=== PATIENT | male | born 1960 | race Caucasian/White ===

== ENCOUNTER 2016-10-18 01:36 | Inpatient (IN) ==
[2016-10-18] MEDS ORDERED: Ipratropium/Albuterol Neb 3 ML IH ONE (01:40)
[2016-10-18] MEDS ORDERED: methylPREDNISolone 125 MG/2 ML VIAL IVP ONE (01:40)
--- NOTE | 2016-10-18 01:44 | Emergency Department Note ---
Disposition Clinical Impression: CKD (chronic kidney disease) stage 3, GFR 30-59 ml/min, Flexor tenosynovitis of finger CHF exacerbation Qualifiers: Congestive heart failure type: combined Qualified Code(s): I50.43 - Acute on chronic combined systolic (congestive) and diastolic (congestive) heart failure Disposition: Admitted As Inpatient Condition: Undetermined Referrals: NO,PCP [Non-Partnered Physician] - Forms: ED Satisfaction Letter Time of Disposition: 05:05 SOB HPI - General Chief Complaint: ED Shortness of Breath/Dyspnea Stated Complaint: Jessica/ infected finger Time Seen by Provider: 10/18/16 01:39 Source: patient, family Mode of arrival: ambulatory Limitations: no limitations Nursing Notes Reviewed: Yes Vital Signs Reviewed: Yes - History of Present Illness 56-year-old male with history of diabetes arrives to [facility] emergency department complaining of difficulty breathing that started 3 days ago. The patient states this progressively gotten worse. The patient states his bilateral lower extremity swelling is also worsened. The patient is currently on Lasix for swelling but states that is progressively worsening. The patient denies any chest pain, abdominal pain, nausea nausea, vomiting, cough, change in sputum production. In addition the patient states that he had a splint his finger that started roughly 2 days ago and has progressively worsened to the point today where it is so swollen he cannot move his right third digit on his upper extremity. He denies any fevers or chills. Pt Subjective Complaint: shortness of breath Onset (ago): day(s) (3) Severity: moderate, severe Consistency/Duration: gradually worsening Improves with: nothing Worsens with: exertion Known history of: congestive heart failure, diabetes Associated symptoms: Reports: orthopnea, diaphoresis Treatment prior to arrival: none Cough present: No Sputum production: No - Related Data Home oxygen amount: none Previous Rx's Medication Instructions Recorded Aspirin 81 mg PO DAILY #30 tab.chew 01/10/16 Amlodipine [Norvasc] 5 mg PO DAILY #60 tablet 01/27/16 Ergocalciferol (VITAMIN D2) 50,000 unit PO QWEEK #7 capsule 01/27/16 [Drisdol (50,000 Unit)] Ferrous Sulfate 325 mg PO BIDWM #120 tablet 01/27/16 Insulin LISPRO [HumaLOG] 5 units SQ TIDWM #1 vial 01/27/16 Insulin NPH/REG 70/30 (HUMAN) 28 unit SQ QAM #1 vial 01/27/16 [Humulin 70/30 Vial] Insulin NPH/REG 70/30 (HUMAN) 34 unit SQ HS #1 vial 01/27/16 [Humulin 70/30 Vial] Lactobacillus [Culturelle] 1 each PO BID #120 cap.sprink 01/27/16 Metoprolol [Lopressor] 50 mg PO BID #120 tablet 01/27/16 Furosemide [Lasix] 20 mg PO DAILY #30 tablet 01/30/16 Ciprofloxacin HCl [Cipro] 500 mg PO BID 14 Days 02/11/16 Doxycycline 100 mg PO BID 14 Days 02/11/16 PredniSONE 10 mg PO DAILY #30 tablet 02/11/16 Cephalexin [Keflex] 500 mg PO TID #30 capsule 05/07/16 Doxycycline 100 mg PO BID #20 capsule 05/07/16 Allergies Allergy/AdvReac Type Severity Reaction Status Date / Time clindamycin Allergy Difficulty Verified 02/04/16 15:39 Breathing All systems ED: reviewed and negative except as stated. Constitutional: Denies: fever, chills, weakness, weight change Eyes: Denies: eye pain, eye discharge, vision change ENT ED: Denies: ear pain, throat pain, dental pain, hearing loss, epistaxis, congestion, dysphagia Cardiovascular: Reports: dyspnea on exertion, orthopnea, edema Respiratory: Reports: dyspnea. Denies: cough, wheezes, hemoptysis, stridor, sputum production Gastrointestinal: Denies: abdominal pain, nausea, vomiting, diarrhea, constipation, hematemesis, melena, hematochezia Genitourinary: Denies: urgency, dysuria, frequency, hematuria Musculoskeletal: Reports: joint swelling, arthralgia (Right 3rd digit). Denies : back pain, neck pain Integumentary: Denies: rash, abrasion, lesions Neurological: Reports: as per HPI Past Medical History - Past Medical History Attestation: Yes The following information was validated with the patient. Source: patient Medical history: Reports: arthritis, CHF, diabetes, GERD, hypertension, kidney stones, other Surgical history: Reports: appendectomy, other Psychiatric history: Reports: no psych history - Social History Smoking Status: Current some day smoker Smokeless Tobacco Status: No Alcohol use: Reports: none Drug use: Reports: none Physical Exam Physical Exam: General: Patient alert, in mild to moderate acute respiratory distress, not lethargic, patient is tripoding HEENT: Head normal inspection, atraumatic, PERRLA, oropharynx grossly intact and normal, trachea midline, no JVD Chest: Nontraumatic, nontender, normal chest rise CV: RRR with no murmurs, rubs, gallops Respiratory: Lungs clear to auscultation bilaterally, no rales, rhonchi, wheezes. Abdomen: Normal inspection, Normal bowel sounds 4 quadrants, nontender to palpation : Patient deferred Extremities: Patient has swollen and erythematous right third digit on right upper extremity with chronic skin changes in the distal aspect consistent with skin irritation, fusiform swelling of the right third digit, patient's right third digit is held in partial flexion and he is unable to flex or extend the digit., appropriate pulses, capillary refill under 2 seconds Neurological: Patient alert and oriented 3, cranial nerves II through XII grossly intact, GCS 15 Skin: Warm, intact, no rashes noted - General Limitations: no limitations General appearance: alert, in no apparent distress Course Vital Signs Temperature 97.7 F 10/18/16 01:37 Pulse Rate 85 10/18/16 01:37 Respiratory Rate 18 10/18/16 01:37 Blood Pressure 196/84 10/18/16 01:37 O2 Sat by Pulse Oximetry 94 10/18/16 01:37 Temperature 97.7 F 10/18/16 01:37 Pulse Rate 79 10/18/16 04:30 Respiratory Rate 22 10/18/16 04:30 Blood Pressure 184/86 10/18/16 04:30 O2 Sat by Pulse Oximetry 95 10/18/16 04:30 Oxygen Delivery Oxygen Delivery Bipap Shortness of Breath/Dyspnea - MDM Narrative Medical decision making narrative: Patient's symptoms consistent with exacerbate his CHF. The patient improved on BiPAP as well as nitroglycerin. The patient denies any further complaints at this time after helping the patient breathes with the BiPAP, other than his right third digit. Clinically this appears to be flexor tenosynovitis given the patient's fusiform swelling, the digit being stuck in extension. CT scan of the patient's and is pending at this time. We went ahead and began and the patient on vancomycin and Rocephin which is what is recommended for tenosynovitis. He received a 20 mg/kg dose of vancomycin and 1 g of Rocephin. The patient remains afebrile. The patient will be admitted to the hospitalist accepted by Dr. Vasquez. - Lab Data Lab results reviewed: Yes I reviewed the patient's lab results. Result diagrams: 10/18/16 01:58 10/18/16 01:58 Lab Results 10/18/16 10/18/16 10/18/16 Range/Units 01:58 01:58 01:58 WBC 10.8 (4.3-11.1) K/mcL RBC 3.74 L (4.19-5.50) M/mcL Hgb 10.1 L (12.9-16.9) g/dL Hct 31.6 L (37.5-50.1) % MCV 84.5 (83.0-100.0) fL MCH 27.0 L (28.0-33.3) pg MCHC 32.0 (31.6-35.5) g/dL RDW 13.2 (11.5-14.5) % Plt Count 235 (140-400) K/mcL MPV 9.8 (9.4-12.4) fL Immature Gran % 0.5 (0-4) % Seg Neutrophils % 77.0 % Lymphocytes % 8.0 % Monocytes % 8.4 % Eosinophils % 5.1 % Basophils % 1.0 % Neutrophils # 8.3 (1.6-8.9) K/mcL Lymphocytes # 0.9 (0.6-4.6) K/mcL Monocytes # 0.9 (0.0-1.3) K/mcL Eosinophils # 0.6 (0.0-0.6) K/mcL Basophils # 0.1 (0.0-0.2) K/mcL VBG pH (7.32-7.42) pH Units VBG pCO2 (41-51) mmHg VBG pO2 (25-40) mmHg VBG HCO3 (21-27) mEq/L Sodium 138 (136-145) mEq/L Potassium 4.7 H (3.5-4.5) mEq/L Chloride 108 (98-109) mEq/L Carbon Dioxide 22 (19-29) mEq/L BUN 57 H (8-26) mg/dL Creatinine 2.14 H (0.72-1.25) mg/dL Est GFR ( Amer) 39 L (> 60) Est GFR (Non-Af Amer) 32 L (> 60) BUN/Creatinine Ratio 27 H (6-26) Glucose 202 H (70-99) mg/dL Calculated Osmolality 308 H (280-300) Lactic Acid (0.5-2.2) mmol/L Calcium 8.3 L (8.6-10.8) mg/dL Troponin I 0.03 (0-0.03) ng/mL B-Natriuretic Peptide (0-100) pg/mL 10/18/16 10/18/16 10/18/16 Range/Units 01:58 01:58 01:58 WBC (4.3-11.1) K/mcL RBC (4.19-5.50) M/mcL Hgb (12.9-16.9) g/dL Hct (37.5-50.1) % MCV (83.0-100.0) fL MCH (28.0-33.3) pg MCHC (31.6-35.5) g/dL RDW (11.5-14.5) % Plt Count (140-400) K/mcL MPV (9.4-12.4) fL Immature Gran % (0-4) % Seg Neutrophils % % Lymphocytes % % Monocytes % % Eosinophils % % Basophils % % Neutrophils # (1.6-8.9) K/mcL Lymphocytes # (0.6-4.6) K/mcL Monocytes # (0.0-1.3) K/mcL Eosinophils # (0.0-0.6) K/mcL Basophils # (0.0-0.2) K/mcL VBG pH 7.41 (7.32-7.42) pH Units VBG pCO2 36 L (41-51) mmHg VBG pO2 179 H (25-40) mmHg VBG HCO3 22.8 (21-27) mEq/L Sodium (136-145) mEq/L Potassium (3.5-4.5) mEq/L Chloride (98-109) mEq/L Carbon Dioxide (19-29) mEq/L BUN (8-26) mg/dL Creatinine (0.72-1.25) mg/dL Est GFR ( Amer) (> 60) Est GFR (Non-Af Amer) (> 60) BUN/Creatinine Ratio (6-26) Glucose (70-99) mg/dL Calculated Osmolality (280-300) Lactic Acid 1.4 (0.5-2.2) mmol/L Calcium (8.6-10.8) mg/dL Troponin I (0-0.03) ng/mL B-Natriuretic Peptide 240 H (0-100) pg/mL - Radiology Data Radiology results reviewed: Yes I reviewed the patient's radiology results. - EKG Data EKG attestation: Yes I reviewed and interpreted this EKG. EKG results narrative: Heart rate 86 bpm. NE interval 123 ms. QTC 48 ms. Normal axis. Normal sinus rhythm. Right bundle branch block. No ST elevation or ST depression noted. No acute changes on EKG from 01/09/2016.
--- NOTE | 2016-10-18 01:49 | Emergency Department Note ---
START Narrative - START START: I examined this patient and my medical decision-making was reviewed with the MEDICAL LABORATORY SPECIALIST/PA/Advanced Practice Nurse/Resident Physician. I agree with the documented findings, disposition and treatment plan as described except to the extent set forth below. ED attending note: Patient seen with emergency medicine resident Dr. Austin. Please see a copy of his note for details of the H&P, evaluation, management and disposition of this patient. We independently had [id number] contact with the patient Briefly: A 56-year-old large-bore comes in with 2 chief complaints 1 increasing shortness of breath unable to lie down and swelling of his body for the past 3 days. Injury to the right middle finger with redness and swelling and pain. Physical examination shows a lateral malleolus [address] Patient is getting DuoNeb treatment and BiPAP. We will also get a CT that scan of the hand and finger to exclude the possibility of presumed flexor tenosynovitis. Admission anticipated. Provided 30 minutes critical care service for this patient. Disposition pending.
[2016-10-18] MEDS: Nitroglycerin 0.4 MG TAB.SUBL SL PRN ×3 (02:00→02:15)
[2016-10-18 02:12] LABS: Basophils # 0.1 K/mcL (0.0-0.2); Eosinophils # 0.6 K/mcL (0.0-0.6); Eosinophils % 5.1 %; Hematocrit 31.6 % (37.5-50.1); Hemoglobin 10.1 g/dL (12.9-16.9); Immature Granulocytes % 0.5 % (0-4); Lymphocytes # 0.9 K/mcL (0.6-4.6); Mean Corpuscular Volume 84.5 fL (83.0-100.0); Mean Platelet Volume 9.8 fL (9.4-12.4); Monocytes # 0.9 K/mcL (0.0-1.3); Monocytes % 8.4 %; Neutrophils # 8.3 K/mcL (1.6-8.9); Platelet Count 235 K/mcL (140-400); Red Blood Count 3.74 M/mcL (4.19-5.50); Red Cell Distribution Width 13.2 % (11.5-14.5)
[2016-10-18 02:16] LABS: VBG HCO3 22.8 mEq/L (21-27); VBG PH 7.41 pH Units (7.32-7.42)
[2016-10-18 02:25] LABS: Calcium 8.3 mg/dL (8.6-10.8); Potassium 4.7 mEq/L (3.5-4.5)
[2016-10-18] MEDS ORDERED: Vancomycin 2,000 MG in D5% in Water 250 ML IVPB ONE (03:48)
[2016-10-18] MEDS ORDERED: *HR* HYDROcodone/Acet 5/325 mg TABLET PO PRN (08:07)
[2016-10-18] MEDS ORDERED: Ondansetron 4 MG/2 ML VIAL IVP PRN (08:07)
[2016-10-18] MEDS ORDERED: Naloxone 0.4 MG/ML INJ IVP PRN (08:07)
[2016-10-18] MEDS ORDERED: *HR* Morphine 2 MG/ML SYRINGE IVP PRN (08:07)
[2016-10-18] MEDS ORDERED: Acetaminophen 325 MG TABLET PO PRN (08:07)
[2016-10-18] MEDS ORDERED: Dextrose Gel 15 GM PO PRN ×2 (08:11)
[2016-10-18] MEDS ORDERED: D5% in Water 1,000 ML IVC PRN (08:11)
[2016-10-18] MEDS ORDERED: *HR* Dextrose 50 % in Water (Syg) 50 ML SYRINGE IVP PRN (08:11)
[2016-10-18] MEDS ORDERED: Furosemide 40 MG/4 ML VIAL IVP ONE (08:12)
--- NOTE | 2016-10-18 09:32 | Internal Med History&Physical ---
Date of Encounter: 10/18/16 Time of Encounter: 09:31 Assessment and Plan (1) Acute respiratory failure with hypoxia Current visit: Yes Status: Acute Secondary to pulmonary edema from uncontrolled HTN and CHF exacerbation Patient is currently on BiPAP Place bedside pulse oximetry Continue BiPAP for now NPO for now May transition to O2 by nasal cannula after re-evaluation if patient improves Patient is at risk for worsening failure and mechanical intubation (2) CHF exacerbation Current visit: Yes Status: Acute Patient with Moderate diastolic dysfunction per ECHO in 2016 Not compliant with dietary and fluid restriction I suspect he is also not complaint with meds, due to uncontrolled HTN and DM Patient is given IV lasix 40 STAT, continue IV 40mg bid, and will give extra doses as tolerated by BP and kidney function Monitor Chem Strict I/O Bed rest Daily weights Obtain new ECHO EKG is non-ischemic, patient has no chest pain and troponin is negative Fluid restriction diet Qualifiers: Congestive heart failure type: diastolic Qualified Code(s): I50.33 - Acute on chronic diastolic (congestive) heart failure (3) Cellulitis of right middle finger Current visit: Yes Status: Acute Hand CT has been ordered Continue vancomycin and ceftriaxone Will consult hand surgery (4) COPD (chronic obstructive pulmonary disease) Current visit: Yes Status: Chronic Not in exacerbation Duonebs prn Qualifiers: COPD type: chronic bronchitis Chronic bronchitis type: simple Qualified Code(s): J41.0 - Simple chronic bronchitis (5) CKD (chronic kidney disease), stage III Current visit: Yes Status: Chronic Chronic, stable Continue to monitor Chem (6) Diabetes mellitus Current visit: Yes Status: Chronic Uncontrolled, complicated Obtain A1C ADA diet FS ACHS Basal, prandial and correctional dose insulin Qualifiers: Diabetes mellitus type: type 2 Diabetes mellitus complication status: with kidney complications Diabetes mellitus complication detail: with chronic kidney disease Diabetes mellitus group home insulin use: with group home use Chronic kidney disease stage: stage 3 (moderate) Qualified Code(s): E11.22 - Type 2 diabetes mellitus with diabetic chronic kidney disease; N18.3 - Chronic kidney disease, stage 3 (moderate); Z79.4 - nursing home (current) use of insulin (7) Tobacco abuse Current visit: Yes Status: Chronic Encouraged to quit NRT prn (8) Accelerated hypertension Current visit: Yes Status: Acute Resume home meds Continue IV lasix Titrate prn (9) Diarrhea Current visit: Yes Status: Acute Check C.diff Electrolytes are acceptable Qualifiers: Diarrhea type: unspecified type Qualified Code(s): R19.7 - Diarrhea, unspecified Internal Medicine - H&P: HPI Chief complaint: shortness of breath Admitted From: Home Plans for Post Hospital Care: Home History of present illness: Mr. Robles is a 56 year old male with PMH of Morbid Obesity, HTN, CKD III, DM, CHFpEF with moderate diastolic dysfunction and moderate Pulm HTN (ECHO 01/2016), Daily smoker Evaluated at bedside with RN and his spouse He presented to the ER with complains of worsening of his leg swelling and progressive shortness of breath for the past 3- 5 days. He reports he is compliant with his home medications but does take a lot of salt and lots of fluids. He denied chest pain, palpitations, but endorsed orthopnea, he denies nausea, vomiting or diaphoresis He also reports he has been having diarrhea for 3 weeks (his seemed surprised at this information), he denies abdominal pain, stool is non-bloody and non-mucoid he also reports he has had a swelling of his right middle finger for the past week, now recently associated redness , and pain involving his entire right hand. he is a poorly controlled diabetic with multiple foot infections. He denies fever or chills. In the ED he was tachypneic, hypoxic and hypertensive, SBP >190, DBP >100, he was worked up and given antibiotics for his finger infection and solumedrol for his shortness of breath At bedside, patient is tachypneic on BIPAP, with RR 20-24, speaks full sentences rapidly , and in mild respiratory distress, he is afebrile. Neurologic exam revealed no focal deficits HEENT: Moist oral mucosa, no JVD Chest: Severely diminished breath sounds bilaterally , possibly due to body habitus and fine crackles are present at the lung bases. Patient is not wheezing. heart: S1, S2, tachycardia, no m/g/r Abdomen: Abdominal wall edema, obese abdomen with no palpably enlarged organs , no masses palpable, BS are present Extremities: Bilateral 3+ pitting pedal edema up to the knees, patient also has sacral edema. Hid right middle finger is swollen, red and tender, with possibly fluctuancy on the finger bed, his right hand is also swollen up to mid forearm. Radial pulses are present. Labs and Imaging reviewed BNP 240 CBC WNL for baseline Chem at baseline VBG no hypoxia CXR: Pulmonary edema EKG RBBB, NOn-ischemic ECHO 01/2016-LVEF 60%, moderate DD, Moderate Pulm HTN Past Med Surg Social Fam HX - Past Medical History Medical history: arthritis, CHF, diabetes, GERD, hypertension, kidney stones, other Psychiatric history: no psych history - Past Surgical History Surgical History: appendectomy, other - Social History Smoking Status: Current some day smoker Smokeless Tobacco Status: No Alcohol use: none Drug use: none - Family History Mother Hx Family Endocrine Disorder: Yes (DIABETIC) Father Hx Family Cancer: Yes (PROSTATE CANCER) Sister Hx Family Cardiac Disorders: Yes (hypertension, hyperlipidemia) Hx Family Endocrine Disorder: Yes (DMII) Internal Medicine - H&P: Meds Insulin NPH/REG 70/30 (HUMAN) [Humulin 70/30 Vial] 28 unit SQ QAM #1 vial [Rx] Insulin NPH/REG 70/30 (HUMAN) [Humulin 70/30 Vial] 34 unit SQ HS #1 vial [Rx] Furosemide [Lasix] 40 mg PO BID 10/18/16 [History] Lisinopril-HCTZ 10-12.5 [Prinzide 10-12.5] 1 tab PO DAILY 10/18/16 [History] Potassium Chloride [K-Tab ER] 20 meq PO DAILY 10/18/16 [History] Allergies clindamycin Allergy (Verified 10/18/16 06:00) Difficulty Breathing All Systems PM: A 10-system review of systems was performed and is negative for pertinent findings except as documented above in the HPI. - Constitutional Constitutional: as per HPI - EENT Eyes: as per HPI Ears: as per HPI Nose, mouth and throat: as per HPI - Cardiovascular Cardiovascular ROS IM: as per HPI - Respiratory Respiratory: as per HPI - Gastrointestinal Gastrointestinal: as per HPI - Musculoskeletal Musculoskeletal ROS IM: as per HPI - Integumentary Integumentary IM: as per HPI - Neurological Neurological ROS: as per HPI - Hematologic/Lymphatic Hematologic/Lymphatic: as per HPI - Constitutional Vitals: Temp Pulse Resp BP Pulse Ox 98.1 F 83 16 196/79 96 10/18/16 06:51 10/18/16 06:51 10/18/16 06:51 10/18/16 06:51 10/18/16 06:51 At bedside, patient is tachypneic on BIPAP, with RR 20-24, speaks full sentences rapidly , and in mild respiratory distress, he is afebrile. Neurologic exam revealed no focal deficits HEENT: Moist oral mucosa, no JVD Chest: Severely diminished breath sounds bilaterally , possibly due to body habitus and fine crackles are present at the lung bases. Patient is not wheezing. heart: S1, S2, tachycardia, no m/g/r Abdomen: Abdominal wall edema, obese abdomen with no palpably enlarged organs , no masses palpable, BS are present Extremities: Bilateral 3+ pitting pedal edema up to the knees, patient also has sacral edema. Hid right middle finger is swollen, red and tender, with possibly fluctuancy on the finger bed, his right hand is also swollen up to mid forearm. Radial pulses are present. Internal Med - H&P Results - Labs CBC & Chem 7: 10/18/16 01:58 10/18/16 01:58 Labs: Labs and Imaging reviewed BNP 240 CBC WNL for baseline Chem at baseline VBG no hypoxia CXR: Pulmonary edema EKG RBBB, NOn-ischemic ECHO 01/2016-LVEF 60%, moderate DD, Moderate Pulm HTN
[2016-10-18 10:32] LABS: Hemoglobin A1C 7.6 %
[2016-10-18] MEDS: Insulin LISPRO 300 UNITS/3 ML VIAL SQ SCH ×5 (12:37→20:32)
[2016-10-18] MEDS ORDERED: Vancomycin 2,000 MG in D5% in Water 250 ML IVPB SCH (15:00)
[2016-10-18] MEDS: Furosemide 40 MG/4 ML VIAL IVP SCH (17:33)
[2016-10-18] MEDS: Insulin DETEMIR 100 UNIT/ML X5UNITS SQ SCH (20:32)
[2016-10-18] MEDS: Nitroglycerin 1 INCH/GM PACKET TP SCH (23:03)
[2016-10-19 03:28] LABS: Basophils # 0.1 K/mcL (0.0-0.2); Basophils % 0.5 %; Eosinophils # 0.1 K/mcL (0.0-0.6); Eosinophils % 0.5 %; Hematocrit 29.5 % (37.5-50.1); Hemoglobin 9.4 g/dL (12.9-16.9); Immature Granulocytes % 0.7 % (0-4); Lymphocytes # 1.2 K/mcL (0.6-4.6); Lymphocytes % 9.4 %; Mean Corpuscular HGB Conc 31.9 g/dL (31.6-35.5); Mean Corpuscular Hemoglobin 26.9 pg (28.0-33.3); Mean Corpuscular Volume 84.3 fL (83.0-100.0); Mean Platelet Volume 10.4 fL (9.4-12.4); Monocytes # 1.1 K/mcL (0.0-1.3); Monocytes % 8.8 %; Neutrophils # 10.3 K/mcL (1.6-8.9); Platelet Count 248 K/mcL (140-400); Red Cell Distribution Width 13.1 % (11.5-14.5); Segmented Neutrophils % 80.1 %
[2016-10-19 03:41] LABS: Calcium 8.8 mg/dL (8.6-10.8); Potassium 4.4 mEq/L (3.5-4.5)
[2016-10-19] MEDS: Nitroglycerin 1 INCH/GM PACKET TP SCH ×2 (04:48→12:57)
[2016-10-19] MEDS: Vancomycin 1,500 MG in D5% in Water 250 ML IVPB SCH (05:42)
[2016-10-19] MEDS: *HR* Enoxaparin 40 MG/0.4 ML SYRINGE SQ SCH (05:43)
[2016-10-19] MEDS: Insulin LISPRO 300 UNITS/3 ML VIAL SQ SCH ×7 (08:35→21:33)
[2016-10-19] MEDS: Furosemide 40 MG/4 ML VIAL IVP SCH ×2 (08:43→16:57)
[2016-10-19] MEDS ORDERED: Lisinopril 20 MG TABLET PO SCH (09:00)
--- NOTE | 2016-10-19 09:30 | Electrocardiograph Report ---
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
--- NOTE | 2016-10-19 10:37 | ECHO - Doppler Report ---
Echocardiogram Name: Román Robles Date of Study: 10/19/2016 Date: 1960 Ht: 69.0 in Medical Record#: [id number] Age: 56 Wt: 293.0 lb Gender: Male BSA: 2.43 Order #: [id number] Location: [facility] Room #: 3B Reading Physician: Nitin Atkins DO, FACC, HARDY Commissary Manager: RENO RiosT, RD Ordering Physician: Rachael Kerns CNP Primary Physician: Dyllan Richards MD Indications: Congestive heart failure Impressions: LVEF 60-65%. Normal LV chamber size and function. Mild concentric left ventricular hypertrophy. Moderate left ventricular diastolic dysfunction. Normal right ventricular structure and function. Moderately dilated left atrium. Mild pulmonary hypertension. Estimated RVSP is 43 mmHg. No significant valvular dysfunction. Left Ventricular Wall Motion: Rest Echo Findings All wall segments showed normal motion. Findings: Study Quality * Technically adequate exam. ECG Findings * Normal sinus rhythm. Left Ventricle * LVEF 60-65%. * Normal LV chamber size and function. * Mild concentric left ventricular hypertrophy. * Moderate left ventricular diastolic dysfunction. Right Ventricle * Normal right ventricular structure and function. Left Atrium * Moderately dilated left atrium. Right Atrium * Mild to moderately dilated right atrium. Interatrial Septum * No evidence of PFO by color Doppler. Aortic Valve * Trileaflet aortic valve. * Mildly sclerotic aortic valve leaflets. * No aortic stenosis. * Trace aortic regurgitation. Mitral Valve * Mildly thickened mitral valve leaflets. * Trace mitral regurgitation. * No mitral stenosis. Tricuspid Valve * Normal tricuspid valve structure and function. * Trace tricuspid regurgitation. * Mild pulmonary hypertension. * Estimated RVSP is 43 mmHg. * Estimated RA pressure is 5 mmHg. Pulmonic Valve * Normal pulmonic valve structure and function. * Trace pulmonic regurgitation. Aorta * Normally sized aortic root. Pericardium * There is a trivial pericardial effusion present. IVC * Normal IVC dimensions and inspiratory collapse. Pulmonary Artery * Normal visualized portions of the main pulmonary artery. History Hypertension Diabetes Congestive Heart Failure 02-06-2016 a Previous Echo was performed. Measurements: BP: 129/ 68 2D Normal Values RVIDd: 3.80 cm <2.7 cm IVSd: 1.30 cm 0.6 - 1.0 cm LVIDd: 5.50 cm 3.7 - 5.6 cm LVPWd: 1.30 cm 0.6 - 1.1 cm LVIDs: 4.00 cm 1.5 - 3.6 cm AO: 2.90 cm < 4.0 cm LA: 4.50 cm 2.0 - 4.0cm %FS: 27.30 cm >25 % LA volume: 72 Mitral Valve Dec Time:236.00 msec Peak E:1.31 m/sec Peak A:.70 m/sec E/A Ratio:1.9 Peak E' Lat Sukhdev:10.2 cm/s Peak E' Med Sukhdev:13.1 cm/s E/E' Lat Ratio:12.8 E/E' Med Ratio:10 Aortic Valve AI pressure Half-time: 432.00 msec Tricuspid Valve TV Regurg Peak Grad: 38.00mmHg TV Regurg Peak Sukhdev: 3.08m/sec Updated by Nitin Atkins DO, PRECIOUS, ESTHER DASH on 10/19/2016 10:33:36 AM electronically signed on 10/19/2016 10:33:59 AM with status of Final Wall Motion [place]: 1=Normal, 2=Hypokinesis, 3=Akinesis, 4=Dyskinesis, 5=Aneurysmal, 6=Hyperkinetic, X=Not Visualized (Blank)=Missing
--- NOTE | 2016-10-19 12:06 | Internal Med Progress Note ---
Date of Encounter: 10/19/16 Time of Encounter: 12:04 - Assessment and plan (1) Acute respiratory failure with hypoxia Current Visit: Yes Status: Acute Assessment and plan: Improved Supplemental O2 prn (2) CHF exacerbation Current Visit: Yes Status: Acute Assessment and plan: I/O -3L Weight loss reported ECHO noted Continue current management Qualifiers: Congestive heart failure type: diastolic Qualified Code(s): I50.33 - Acute on chronic diastolic (congestive) heart failure (3) Cellulitis of right middle finger Current Visit: Yes Status: Acute Assessment and plan: Wioth abscess And MRSA possibly from the infected right middle finger s/p I and D and biopsy Hand MRI shows osteomyelitis with abscess and tenosynovitis Continue Vancomycin and Ceftriaoxone Pharmacy to dose Monitor vanco trough and renal function Repeat blood cultures a.m to assess clearance of bacteremia prior to placing PICC line ECHO reports no vegetations Patient is afebrile (4) COPD (chronic obstructive pulmonary disease) Current Visit: Yes Status: Chronic Assessment and plan: Continue duonebs prn Qualifiers: COPD type: chronic bronchitis Chronic bronchitis type: simple Qualified Code(s): J41.0 - Simple chronic bronchitis (5) CKD (chronic kidney disease), stage III Current Visit: Yes Status: Chronic Assessment and plan: Slighlty elevatd BUN Cr stable Continue diuresis and continue to monitor (6) Diabetes mellitus Current Visit: Yes Status: Chronic Qualifiers: Diabetes mellitus type: type 2 Diabetes mellitus complication status: with kidney complications Diabetes mellitus complication detail: with chronic kidney disease Diabetes mellitus intermediate insulin use: with intermediate use Chronic kidney disease stage: stage 3 (moderate) Qualified Code(s): E11.22 - Type 2 diabetes mellitus with diabetic chronic kidney disease; N18.3 - Chronic kidney disease, stage 3 (moderate); Z79.4 - jail (current) use of insulin (7) Tobacco abuse Current Visit: Yes Status: Chronic Assessment and plan: Cessation counselling done (8) Accelerated hypertension Current Visit: Yes Status: Acute (9) Diarrhea Current Visit: Yes Status: Acute Assessment and plan: Cdiff negative Patient denies symptoms Qualifiers: Diarrhea type: unspecified type Qualified Code(s): R19.7 - Diarrhea, unspecified (10) MRSA bacteremia Current Visit: Yes Status: Acute Assessment and plan: Mgt as in cellulitis (11) Osteomyelitis Current Visit: Yes Status: Acute Assessment and plan: R middle finger management as in cellulitis Qualifiers: Osteomyelitis type: unspecified type Osteomyelitis location: other site Qualified Code(s): M86.9 - Osteomyelitis, unspecified - Subjective Interval history: Seen at bedside Denies new complains He looks markedly improved compared to clinical status on arrival Adequately diuresed, I/O -3L, weight loss noted Blood culture now with MRSA Hand CT noted for cellulitis and possible osteomyelitis ECHO reviewed -moderate LVDD, Pulm HTN, dilated LA. EF 60-65% No vegetations orthopedics has been consulted , saw Dr. Champion at bedside, patient has had I and D of the right third finger and bone biopsy has been obtained - Constitutional Vitals: Temp Pulse Resp BP Pulse Ox 97.1 F L 69 17 173/84 97 10/19/16 11:57 10/19/16 11:57 10/19/16 11:57 10/19/16 11:57 10/19/16 11:57 General appearance: Present: A&O X 3, morbidly obese, pleasant, no acute distress - Head Head exam: Present: atraumatic, normocephalic - Eye Eye exam: Present: PERRL, conjuntiva pink, sclera anicteric Pupils: Present: PERRL - Neck Neck exam general surgery: Present: supple, trachea midline. Absent: lymphadenopathy - Respiratory Respiratory exam: Present: CTAB. Absent: accessory muscle use, rales, rhonchi, wheezes - Cardiovascular Cardiovascular exam: Present: JVD, RRR, +S1, +S2. Absent: diastolic murmur, gallop, rubs, systolic murmur - GI/Abdominal GI/Abdominal exam: Present: normal bowel sounds, soft, no peritoneal signs. Absent: distended, tenderness - Extremities Exam Extremities exam: Present: pedal edema Additional comments: Right middle finger being biopsied and abscess drained by orthopedic surgeon, minimal bleeding - Neurological Exam Neurological exam: Present: alert, CN II-XII intact, oriented X3, no focal deficits. Absent: pronater drift, facial droop, speech deficit - Skin Skin exam: Present: dry Internal Medicine: Result - Labs CBC & Chem 7: 10/19/16 02:48 10/19/16 02:48 Labs: Short CBC 04/10/17 Range/Units 02:48 WBC 12.8 H (4.3-11.1) K/mcL Hgb 9.4 L (12.9-16.9) g/dL Hct 29.5 L (37.5-50.1) % Plt Count 248 (140-400) K/mcL Neutrophils # 10.3 H (1.6-8.9) K/mcL BMP 10/19/16 02:48 Sodium 140 Potassium 4.4 Chloride 109 Carbon Dioxide 18 L BUN 74 H D Creatinine 2.19 H Glucose 77 Calcium 8.8 Consult Discharge Plan - Plan Referrals: Dyllan Richards MD [Primary Care Provider] - 10/26/16 1:15 pm
[2016-10-19] MEDS ORDERED: amLODIPine 5 MG TABLET PO ONE (12:07)
--- NOTE | 2016-10-19 12:57 | Orthopedic Consult Note ---
Date of Encounter: 10/19/16 Time of Encounter: 12:53 Assessment and Plan (1) Finger infection Current Visit: Yes Status: Acute I did discuss the diagnosis in great detail with the patient. He has a right long finger infection, with abscess underneath the nailbed and presumably osteomyelitis of the distal phalanx. Treatment options were discussed and my recommendation was for nail plate removal and decompression of the abscess with debridement of bone. The goal of the procedure is to treat the infection. The risks discussed included but were not limited to bleeding, infection, anesthesia risks, damage to neurovascular structures, tendons, ligaments, and bone. Also discussed was the risk of continued symptoms and possible need for further procedures. I discussed the reasonable foreseeable course afterwards which is likely 6 weeks of antibiotics and daily dressing changes. I explained to the patient in simple terms and he wished to proceed and consent was obtained. Anesthesia was not needed since he is numb at baseline at the fingertip. A sterile field was set up around the right long finger and a digital tourniquet was used. The nail plate was uneventfully removed and this immediately decompressed the abscess through a hole in the dorsal nailbed. This was cultured with swabs. The hole measured about 2 mm in diameter. This did track down to the distal phalanx. The wound was copiously irrigated. The distal phalanx was debrided and bone was sent for culture. After final copious irrigation the wound was packed with quarter inch packing. The digital tourniquet was taken off. A sterile dressing was placed. The patient tolerated this well. IV antibiotics per the primary team. My recommendation is for daily dressing changes with peroxide soaks. I will follow the patient clinically. History of Present Illness HPI: Mr. Robles is a 56 year old poorly controlled diabetic male who who is admitted to the hospitalist for a CHF exacerbation and acute respiratory failure. He has recovered reasonably well from this, and was noted to have cellulitis about the right long finger. Hand surgery was counseled to assist in the the management of this. The patient indicates to me that he gets chronic fissuring of the tips of the digits and has had diabetic neuropathy and no sensation in the digits for years. Occasionally he will get an infection in the digit which he says resolves itself. The patient indicates that he noticed a fissure at the tip of the right long finger about 2 weeks ago. He says about a week ago began to become swollen and infected and actually auto-decompressed, draining some purulent material. Because of the neuropathy he has no pain. The fingertip is completely numb. No other associated signs or symptoms. The patient has not yet had any treatment for the right long finger specifically. Past Med Surg Social Fam HX - Past Medical History Medical history: arthritis, CHF, diabetes, GERD, hypertension, kidney stones, other Psychiatric history: no psych history - Past Surgical History Surgical History: appendectomy, other - Social History Smoking Status: Current some day smoker Smokeless Tobacco Status: No Alcohol use: none Drug use: none - Family History Mother Hx Family Endocrine Disorder: Yes (DIABETIC) Father Hx Family Cancer: Yes (PROSTATE CANCER) Sister Hx Family Cardiac Disorders: Yes (hypertension, hyperlipidemia) Hx Family Endocrine Disorder: Yes (DMII) Medications and Allergies Furosemide [Lasix] 40 mg PO BID 10/18/16 [History] Insulin NPH Hum/Reg Insulin Hm [Humulin 70-30 Vial] 22 unit SQ BID 10/18/16 [ History] Lisinopril/Hydrochlorothiazide [Zestoretic 20-25 mg Tablet] 1 each PO DAILY 03/28 [History] Metolazone [Zaroxolyn] 2.5 mg PO Q48H 10/18/16 [History] Potassium Chloride [Klor-Con Sprinkle] 10 meq PO BID 10/18/16 [History] Allergies clindamycin Allergy (Verified 10/18/16 06:00) Difficulty Breathing All Systems Reviewed: Constitutional and musculoskeletal systems were reviewed and are negative unless otherwise stated in history of present illness. Physical Exam - Constitutional Vitals: Temp Pulse Resp BP Pulse Ox 97.1 F L 69 17 173/84 97 10/19/16 11:57 10/19/16 11:57 10/19/16 11:57 10/19/16 11:57 10/19/16 11:57 CONSTITUTIONAL -Vitals reviewed -The patient is well developed, well nourished, well groomed PSYCHIATRIC -Fully alert and oriented x 3 -Pleasant mood RIGHT UPPER EXTREMITY -The tip of the long finger has a periodic fluid collection underneath the nail plate, which is partially avulsed from underneath the proximal nail fold. -Moderate generalized swelling to the long fingertip. -Mild, diffuse erythema to the tip of the digit. -Know tenderness and no sensation throughout any of the digits of the hand. -He does demonstrate the ability to grossly flex and extend the digits with some limitation due to the swelling of the long finger. -The fingertips have good capillary refill. Diagnostic Imaging: I did personally review and interpret a CT scan and MRI of the right long finger which does show an abscess underneath the nailbed of the right long finger. There does appear to be a fracture of the distal phalanx versus osteomyelitis. Results - Labs Result Diagrams: 10/19/16 02:48 10/19/16 02:48 Labs: Abnormal lab results WBC 12.8 K/mcL (4.3-11.1) H 10/19/16 02:48 RBC 3.50 M/mcL (4.19-5.50) L 10/19/16 02:48 Hgb 9.4 g/dL (12.9-16.9) L 10/19/16 02:48 Hct 29.5 % (37.5-50.1) L 10/19/16 02:48 MCH 26.9 pg (28.0-33.3) L 10/19/16 02:48 Neutrophils # 10.3 K/mcL (1.6-8.9) H 10/19/16 02:48 VBG pCO2 36 mmHg (41-51) L 10/18/16 01:58 VBG pO2 179 mmHg (25-40) H 10/18/16 01:58 Carbon Dioxide 18 mEq/L (19-29) L 10/19/16 02:48 BUN 74 mg/dL (8-26) H D 10/19/16 02:48 Creatinine 2.19 mg/dL (0.72-1.25) H 10/19/16 02:48 Est GFR ( Amer) 38 (> 60) L 10/19/16 02:48 Est GFR (Non-Af Amer) 32 (> 60) L 10/19/16 02:48 BUN/Creatinine Ratio 34 (6-26) H 10/19/16 02:48 Hemoglobin A1c 7.6 % (-5.6) H 10/18/16 10:16 Calculated Osmolality 311 (280-300) H 10/19/16 02:48 B-Natriuretic Peptide 240 pg/mL (0-100) H 10/18/16 01:58 H & H 10/19/16 Range/Units 02:48 Hgb 9.4 L (12.9-16.9) g/dL Hct 29.5 L (37.5-50.1) % All other labs normal. Consult Discharge Plan - Plan Referrals: Dyllan Richards MD [Primary Care Provider] - 10/26/16 1:15 pm
[2016-10-19] MEDS: Insulin DETEMIR 100 UNIT/ML X5UNITS SQ SCH (21:32)
[2016-10-20] MEDS: Vancomycin 1,500 MG in D5% in Water 250 ML IVPB SCH (06:20)
[2016-10-20] MEDS: *HR* Enoxaparin 40 MG/0.4 ML SYRINGE SQ SCH (06:20)
--- NOTE | 2016-10-20 08:28 | Orthopedics Progress Note ---
Date of Encounter: 10/20/16 Time of Encounter: 08:24 - Assessment and Plan (1) Finger infection Current Visit: Yes Status: Acute I did discuss the diagnosis in great detail with the patient. He has a right long finger infection, with abscess underneath the nailbed and presumably osteomyelitis of the distal phalanx. Treatment options were discussed and my recommendation was for nail plate removal and decompression of the abscess with debridement of bone. The goal of the procedure is to treat the infection. The risks discussed included but were not limited to bleeding, infection, anesthesia risks, damage to neurovascular structures, tendons, ligaments, and bone. Also discussed was the risk of continued symptoms and possible need for further procedures. I discussed the reasonable foreseeable course afterwards which is likely 6 weeks of antibiotics and daily dressing changes. I explained to the patient in simple terms and he wished to proceed and consent was obtained. Anesthesia was not needed since he is numb at baseline at the fingertip. A sterile field was set up around the right long finger and a digital tourniquet was used. The nail plate was uneventfully removed and this immediately decompressed the abscess through a hole in the dorsal nailbed. This was cultured with swabs. The hole measured about 2 mm in diameter. This did track down to the distal phalanx. The wound was copiously irrigated. The distal phalanx was debrided and bone was sent for culture. After final copious irrigation the wound was packed with quarter inch packing. The digital tourniquet was taken off. A sterile dressing was placed. The patient tolerated this well. IV antibiotics per the primary team. My recommendation is for daily dressing changes with peroxide soaks. I will follow the patient clinically. Subjective Interval history: S: Resting in bed comfortably. No right long finger pain. O: Afebrile, VSS Right long finger looks good overall with mild swelling at the tip. No erythema Packing pulled from nailbed I and D site; No drainage. Grossly motors the IP joints. No sensation which is his baseline. Well perfused. Cultures pending. A: Post I and D of right long finger tip for nailbed abscess with osteomyelitis P: Discussed daily dressing and packing changes and peroxide soaks. Elevation. Recommend 6 weeks of antibiotics per primary team. Orthopedically stable for discharge. Follow up in 1 week. Objective Vital signs: Vital Signs Temp Pulse Resp BP Pulse Ox 10/20/16 08:09 97.5 F L 66 16 155/76 97 10/20/16 03:04 97.6 F 69 18 167/87 96 10/19/16 23:02 97.4 F L 73 18 161/87 97 10/19/16 21:32 97 10/19/16 19:12 97.3 F L 71 18 162/83 96 10/19/16 14:56 97.7 F 66 18 133/70 98 10/19/16 11:57 97.1 F L 69 17 173/84 97 Intake and Output 10/19/16 10/20/16 10/20/16 23:59 07:59 15:59 Intake Total 1250 / 1250 Output Total 1450 / 1450 400 / 400 Balance -200 / -200 -400 / -400 Intake: Oral 1250 / 1250 Output: Urine 1450 / 1450 400 / 400 Other: Meal Dinner Percent of Meal Consumed 85% Weight 127.913 kg Blood Glucose* 91 72 Patient Weight 10/20/16 23:59 Weight 127.913 kg - Labs CBC & BMP: 10/19/16 02:48 10/19/16 02:48 Labs: Abnormal lab results WBC 12.8 K/mcL (4.3-11.1) H 10/19/16 02:48 RBC 3.50 M/mcL (4.19-5.50) L 10/19/16 02:48 Hgb 9.4 g/dL (12.9-16.9) L 10/19/16 02:48 Hct 29.5 % (37.5-50.1) L 10/19/16 02:48 MCH 26.9 pg (28.0-33.3) L 10/19/16 02:48 Neutrophils # 10.3 K/mcL (1.6-8.9) H 10/19/16 02:48 VBG pCO2 36 mmHg (41-51) L 10/18/16 01:58 VBG pO2 179 mmHg (25-40) H 10/18/16 01:58 Carbon Dioxide 18 mEq/L (19-29) L 10/19/16 02:48 BUN 74 mg/dL (8-26) H D 10/19/16 02:48 Creatinine 2.19 mg/dL (0.72-1.25) H 10/19/16 02:48 Est GFR ( Amer) 38 (> 60) L 10/19/16 02:48 Est GFR (Non-Af Amer) 32 (> 60) L 10/19/16 02:48 BUN/Creatinine Ratio 34 (6-26) H 10/19/16 02:48 Hemoglobin A1c 7.6 % (-5.6) H 10/18/16 10:16 Calculated Osmolality 311 (280-300) H 10/19/16 02:48 B-Natriuretic Peptide 240 pg/mL (0-100) H 10/18/16 01:58 Consult Discharge Plan - Plan Referrals: Dyllan Richards MD [Primary Care Provider] - 10/26/16 1:15 pm
[2016-10-20 09:07] LABS: Basophils # 0.1 K/mcL (0.0-0.2); Basophils % 1.1 %; Eosinophils # 0.7 K/mcL (0.0-0.6); Eosinophils % 7.3 %; Hematocrit 31.4 % (37.5-50.1); Hemoglobin 10.2 g/dL (12.9-16.9); Immature Granulocytes % 0.3 % (0-4); Lymphocytes # 1.8 K/mcL (0.6-4.6); Lymphocytes % 20.1 %; Mean Corpuscular HGB Conc 32.5 g/dL (31.6-35.5); Mean Corpuscular Hemoglobin 27.6 pg (28.0-33.3); Mean Corpuscular Volume 85.1 fL (83.0-100.0); Mean Platelet Volume 10.2 fL (9.4-12.4); Monocytes # 0.9 K/mcL (0.0-1.3); Monocytes % 9.4 %; Neutrophils # 5.7 K/mcL (1.6-8.9); Platelet Count 271 K/mcL (140-400); Red Blood Count 3.69 M/mcL (4.19-5.50); Red Cell Distribution Width 13.3 % (11.5-14.5); Segmented Neutrophils % 61.8 %
[2016-10-20 09:19] LABS: Calcium 8.8 mg/dL (8.6-10.8); Magnesium 1.8 mg/dL (1.6-2.6); Potassium 4.4 mEq/L (3.5-4.5)
[2016-10-20] MEDS: Insulin LISPRO 300 UNITS/3 ML VIAL SQ SCH ×4 (10:01→20:41)
[2016-10-20] MEDS: amLODIPine 5 MG TABLET PO SCH (10:02)
[2016-10-20] MEDS: Furosemide 40 MG/4 ML VIAL IVP SCH ×2 (10:02→17:33)
--- NOTE | 2016-10-20 16:51 | Internal Med Progress Note ---
Date of Encounter: 10/20/16 Time of Encounter: 14:00 - Assessment and plan (1) Acute respiratory failure with hypoxia Current Visit: Yes Status: Acute Assessment and plan: secondary to acute diastolic heart failure. CXR showed pulmonary vascular congestion. 2-D echocardiogram revealed LVEF 60-65%, moderate left ventricular diastolic dysfunction, moderately dilated left atrium. Clinically improving slowly. Good diuresis, -3 L since admission. Patient tolerating room air at rest well but he is still requiring oxygen at bedtime. Check oxygen requirements at bedtime and on exertion. Continue oxygen supplementation at bedtime, IV Lasix, fluid restriction, Norvasc. Start Coreg twice a day. (2) Acute diastolic heart failure Current Visit: Yes Status: Acute Assessment and plan: Plan as above. (3) Cellulitis of right middle finger Current Visit: Yes Status: Acute Assessment and plan: With abscess. And MRSA possibly from the infected right middle finger 10/19/16 s/p I and D and bone biopsy. Wound culture growing gram-positive cocci. Hand MRI shows osteomyelitis with abscess and tenosynovitis 10/19/15: 1/2 bottles blood Culture grew MRSA ECHO reports no vegetations Continue Vancomycin. Stop IV ceftriaxone. Appreciate orthopedic surgery recommendations. Patient will need at least 6 weeks of antibiotics. will consider discharge to home on oral doxycycline tomorrow after wound culture final results Pharmacy to dose Monitor vanco trough and renal function (4) MRSA bacteremia Current Visit: Yes Status: Acute Assessment and plan: plan as above (5) Acute renal failure superimposed on stage 3 chronic kidney disease Current Visit: No Status: Acute Assessment and plan: Cardiorenal secondary to acute diastolic heart failure. close monitor of kidney function. avoid nephrotoxins as possible. (6) COPD (chronic obstructive pulmonary disease) Current Visit: Yes Status: Chronic Assessment and plan: stable. Continue duonebs tid Qualifiers: COPD type: chronic bronchitis Chronic bronchitis type: simple Qualified Code(s): J41.0 - Simple chronic bronchitis (7) Diabetes mellitus Current Visit: Yes Status: Chronic Assessment and plan: fasting glucose 72. stop levemir at bedtime. continue sliding scale insulin and diabetic diet. 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 The swelling of his legs has improved compared to admission. - Constitutional Vitals: Temp Pulse Resp BP Pulse Ox 97.5 F L 71 18 176/90 97 10/20/16 15:16 10/20/16 15:16 10/20/16 15:16 10/20/16 15:16 10/20/16 15:16 General appearance: Present: cooperative, A&O X 3, morbidly obese, pleasant, no acute distress, answers questions appropriately - Eye Eye exam: Present: PERRL, sclera anicteric - Respiratory Respiratory exam: Present: rales (at lung bases) - Cardiovascular Cardiovascular exam: Present: RRR - GI/Abdominal GI/Abdominal exam: Present: normal bowel sounds, soft. Absent: distended, tenderness - Extremities Exam Extremities exam: Present: pedal edema (2+ Le edema up to the knees) - Back Exam Back exam: Absent: CVA tenderness (L), CVA tenderness (R) - Neurological Exam Neurological exam: Present: alert, oriented X3, no focal deficits, strengths equal and symetr throughout. Absent: facial droop, speech deficit - Skin Skin exam: Present: dry. Absent: rash Internal Medicine: Result - Labs CBC & Chem 7: 10/20/16 08:44 10/20/16 08:44 Labs: Short CBC 10/20/16 Range/Units 08:44 WBC 9.2 (4.3-11.1) K/mcL Hgb 10.2 L (12.9-16.9) g/dL Hct 31.4 L (37.5-50.1) % Plt Count 271 (140-400) K/mcL Neutrophils # 5.7 (1.6-8.9) K/mcL BMP 10/20/16 08:44 Sodium 142 Potassium 4.4 Chloride 109 Carbon Dioxide 22 BUN 81 H Creatinine 2.22 H Glucose 56 L Calcium 8.8 - Impressions Impressions Hand MRI 10/19/16 08:08 IMPRESSION: 1. Osteomyelitis of the 3rd distal phalanx with destructive or erosive change at the tuft. 2. A fluid collection surrounds the distal phalanx most pronounced at the nail bed and most likely reflects an abscess. This small collection measures approximately 1.1 x 1.0 x 1.1 cm. 3. Mild 3rd flexor tenosynovitis. D/ / 10/19/2016 12:19:23 Harry Sanderson MD / eliana Interpreting Provider: Harry Sanderson MD Consult Discharge Plan - Plan Referrals: Dyllan Richards MD [Primary Care Provider] - 10/26/16 1:15 pm
[2016-10-21] MEDS ORDERED: Vancomycin 1,750 MG in D5% in Water 500 ML IVPB SCH (05:00)
[2016-10-21] MEDS: *HR* Enoxaparin 40 MG/0.4 ML SYRINGE SQ SCH (05:01)
[2016-10-21 05:29] LABS: Basophils # 0.1 K/mcL (0.0-0.2); Basophils % 1.2 %; Eosinophils # 0.8 K/mcL (0.0-0.6); Eosinophils % 9.2 %; Hematocrit 31.2 % (37.5-50.1); Hemoglobin 10.3 g/dL (12.9-16.9); Immature Granulocytes % 0.4 % (0-4); Lymphocytes # 1.2 K/mcL (0.6-4.6); Lymphocytes % 13.8 %; Mean Corpuscular Hemoglobin 28.1 pg (28.0-33.3); Mean Corpuscular Volume 85.2 fL (83.0-100.0); Mean Platelet Volume 10.4 fL (9.4-12.4); Monocytes # 0.8 K/mcL (0.0-1.3); Monocytes % 9.3 %; Neutrophils # 5.9 K/mcL (1.6-8.9); Platelet Count 274 K/mcL (140-400); Red Blood Count 3.66 M/mcL (4.19-5.50); Red Cell Distribution Width 13.2 % (11.5-14.5); Segmented Neutrophils % 66.1 %
[2016-10-21 05:49] LABS: Calcium 8.8 mg/dL (8.6-10.8); Potassium 4.5 mEq/L (3.5-4.5)
[2016-10-21 07:38] VITALS: BP 132/70
[2016-10-21] MEDS: Insulin LISPRO 300 UNITS/3 ML VIAL SQ SCH (08:45)
[2016-10-21] MEDS: Furosemide 40 MG/4 ML VIAL IVP SCH (08:46)
[2016-10-21] MEDS: amLODIPine 5 MG TABLET PO SCH (08:46)
--- NOTE | 2016-10-21 11:15 | Discharge Summary ---
Date of Encounter: 10/21/16 Time of Encounter: 11:14 - Discharge Diagnosis (1) Acute respiratory failure with hypoxia Priority: Primary Status: Acute (2) Acute diastolic heart failure Priority: Primary Status: Acute (3) Cellulitis of right middle finger Priority: Primary Status: Acute (4) MRSA bacteremia Priority: Primary Status: Acute (5) Acute renal failure superimposed on stage 3 chronic kidney disease Priority: Primary Status: Acute (6) COPD (chronic obstructive pulmonary disease) Priority: Secondary Status: Chronic Qualifiers: COPD type: chronic bronchitis Chronic bronchitis type: simple Qualified Code(s): J41.0 - Simple chronic bronchitis (7) Diabetes mellitus Priority: Secondary Status: Chronic Qualifiers: Diabetes mellitus type: type 2 Diabetes mellitus complication status: with kidney complications Diabetes mellitus complication detail: with chronic kidney disease Diabetes mellitus project management engineer insulin use: with project management engineer use Chronic kidney disease stage: stage 3 (moderate) Qualified Code(s): E11.22 - Type 2 diabetes mellitus with diabetic chronic kidney disease; N18.3 - Chronic kidney disease, stage 3 (moderate); Z79.4 - [facility] (current) use of insulin (8) Tobacco abuse Priority: Secondary Status: Chronic - Discharge Medications Prescriptions: Amlodipine [Norvasc] 10 mg PO DAILY #30 tablet Carvedilol [Coreg] 3.125 mg PO BIDWM #30 tablet Doxycycline 100 mg PO BID 39 Days Home Medications: Amlodipine [Norvasc] 10 mg PO DAILY #30 tablet 10/21/16 [Rx] Carvedilol [Coreg] 3.125 mg PO BIDWM #30 tablet 10/21/16 [Rx] Doxycycline 100 mg PO BID 39 Days 10/21/16 [Rx] Furosemide [Lasix] 40 mg PO TID #0 10/21/16 [Rx] Allergies/Adverse Reactions: Allergies clindamycin Allergy (Verified 10/18/16 06:00) Difficulty Breathing Procedures/tests Complete & Pending: Procedures Performed prior 72 hours Category Date Time Status MR hand RT wo con [MR] Stat MRI 10/19/16 08:08 Completed EV echocardiogram Routine Y 10/19/16 07:00 Completed Date of admission: 10/18/16 08:07 Primary care physician: Dyllan Richards MD Consults: 10/19/16 08:10 Consult to Orthopedic Surgery [CONS] Stat Consulting Provider: [facility] Reason for Consult: Suspected R third finger osteomyelitis Call Completed: Yes 10/20/16 11:15 Consult to Watch Repair Person [CONS] Routine Reason for SW Consult: Possible home ATB - Patient Status Disposition: Home, Self-Care Condition: Undetermined Functional capacity at discharge: uses cane/walker Overall status at discharge: patient is progressing back to baseline - Discharge Instructions Instructions: Doxycycline (By mouth), Amlodipine (By mouth), Carvedilol (By mouth), Heart Failure (DC), Cellulitis (DC), Chronic Obstructive Pulmonary Disease (DC) Follow Up With: Dyllan Richards MD [Primary Care Provider] - 10/26/16 1:15 pm Additional Instructions: CHECK YOUR BLOOD PRESSURE TWICE DAILY (SAME TIME EVERY MORNING AND EVENING), MAKE A LOG AND BRING NUMBERS TO DOCTOR'S APPOINTMENT CHECK YOUR BLOOD SUGAR BEFORE MEALS AND AT BEDTIME, MAKE A LOG AND RING NUMBERS TO DOCTOR'S APPOINTMENT WEIGHT YOURSELF EVERY DAY AND IF YOU GAIN MORE THAN 1 POUND IN A DAY, CALL YOUR DOCTOR. FOLLOW A STRICT FLUID RESTRICTION DIET, NO MORE THAN 1.5 LITERS PER DAY - Diet and Activity Activity: resume usual activities as tolerated Diet: diabetic diet, low fat, low cholesterol, low salt diet, other (STRICT FLUID RESTRICTION 1.5 LITER PER DAY) Interval History: Patient has no shortness of breath. He feels better this morning. He is eager to go home and refuses to stay another night. Hospital course: Mr. Robles is a 56 year old male with past medical history of diabetes, hypertension, tobacco use, and heart failure. He presented with a chief complaint of shortness of breath. He was admitted with diagnosis of acute respiratory failure secondary to acute diastolic heart failure due to noncompliance with diet, fluid restriction and medications. CXR showed pulmonary vascular congestion. 2-D echocardiogram revealed LVEF 60-65%, moderate left ventricular diastolic dysfunction, moderately dilated left atrium. Patient was started on IV diuresis, fluid restriction and oxygen supplementation with clinical improvement (he was negative 5L discharge). He was started on Coreg. At discharge, patient was ambulating on room air well. She was also diagnosed with right middle finger cellulitis with abscess and underwent I&D and bone biopsy. Wound culture grew MRSA. 10/19/15: 1/2 bottles blood Culture grew MRSA. Repeat blood cultures were negative. He was started on IV vancomycin and was switched to oral doxycycline at discharge. PLAN: 1 )Patient will take doxycycline for a total of 6 weeks. He will follow- up in the orthopedic clinic. 2) He was instructed to follow a strict fluid restriction 1.5 L a day, low-salt diet, and to check his blood pressure as well as his blood sugars daily. Follow-up with primary care physician in one week. He was encouraged to start weight loss program. He should have a Sleep study as outpatient. Patient verbalized understanding and agreed with plan. All questions answered. - Time Spent with Patient Total time spent providing and/or coordinating discharge services: - Constitutional Vitals: Temp Pulse Resp BP Pulse Ox 97.8 F 76 18 132/70 93 10/21/16 07:37 10/21/16 07:37 10/21/16 07:37 10/21/16 07:37 10/21/16 09:38 General appearance: Present: cooperative, A&O X 3, morbidly obese, pleasant, no acute distress, answers questions appropriately - Eye Eye exam: Present: PERRL, sclera anicteric - Neck Neck exam general surgery: Present: supple, trachea midline. Absent: lymphadenopathy - Respiratory Respiratory exam: Present: CTAB - Cardiovascular Cardiovascular exam: Present: RRR - GI/Abdominal GI/Abdominal exam: Present: normal bowel sounds, soft. Absent: distended, tenderness - Extremities Exam Extremities exam: Present: pedal edema (2+ LE edema) - Back Exam Back exam: Absent: CVA tenderness (L), CVA tenderness (R) - Neurological Exam Neurological exam: Present: alert, oriented X3, no focal deficits, strengths equal and symetr throughout. Absent: facial droop, speech deficit - Skin Skin exam: Absent: rash
[2016-10-21] MEDS ORDERED: Aminoglycoside Consult 1 EACH MC ONE (18:27)
== END 2016-10-21 18:28 | disposition home or self-care (01) | DRG 320 ==
LOC: EMEROO 01:36 → 3BNU 01:36 → SUATTDRO 08:07
PROVIDERS: ADMIT Internal Medicine; ATTEND Internal Medicine

== ENCOUNTER 2016-11-25 17:25 | Inpatient (IN) ==
[2016-11-25] MEDS ORDERED: Furosemide 40 MG/4 ML VIAL IVP ONE (18:37)
[2016-11-25] MEDS ORDERED: Nitroglycerin 0.4 MG TAB.SUBL SL PRN (18:37)
--- NOTE | 2016-11-25 18:39 | Emergency Department Note ---
START Narrative - START START: Patient to ED with fluid retention. He states he has gained 60 pounds over the past month. Short of breath. States he saw his family doctor who told him to come in to get admitted to get the fluid off so we can treat him better. On exam he has 4+ pitting edema in his legs. Lungs diminished in the bases. Plan. Patient hypertensive. Mildly tachypneic. We will give him nitroglycerin. Cardiac workup. Will be seen by marketing systems analyst.
[2016-11-25 19:13] LABS: Basophils # 0.1 K/mcL (0.0-0.2); Basophils % 1.2 %; Eosinophils # 0.5 K/mcL (0.0-0.6); Hematocrit 31.3 % (37.5-50.1); Hemoglobin 9.9 g/dL (12.9-16.9); Immature Granulocytes % 0.7 % (0-4); Lymphocytes % 12.6 %; Mean Corpuscular HGB Conc 31.6 g/dL (31.6-35.5); Mean Corpuscular Volume 85.3 fL (83.0-100.0); Monocytes # 0.6 K/mcL (0.0-1.3); Monocytes % 8.4 %; Neutrophils # 5.4 K/mcL (1.6-8.9); Platelet Count 205 K/mcL (140-400); Red Blood Count 3.67 M/mcL (4.19-5.50); Red Cell Distribution Width 13.4 % (11.5-14.5); Segmented Neutrophils % 71.1 %
[2016-11-25 19:24] LABS: Calcium 8.2 mg/dL (8.6-10.8)
--- NOTE | 2016-11-25 20:10 | Emergency Department Note ---
START Narrative - START START: Patient checked out by Dr. Molina change of shift with workup pending. Patient has had gradually progressive shortness of breath 60 pound weight gain. Symptoms are classic for heart failure. Patient denies any history of heart failure, no history of kidney failure. Has not had chest pain. Diagnostic test results reviewed, he has a creatinine of 1.9, elevated BNP, heart failure and mild pulmonary edema on chest x-ray. Troponin negative. Old records reviewed, there are no previous labs available in our EMR for comparison. EKG per my interpretation shows sinus rhythm with a rate of 73 and a right bundle-branch block, no acute ischemic changes. Intervals are normal. On my arrival to the room to discuss these results and the need for admission, the patient is standing up at the bedside and has just finish urinating (NTG and Lasix were ordered by Dr. Pimentel). He has no respiratory distress. HR normal on the monitor. He is awake and alert with normal speech and mental status, and a pleasant and appropriate affect. He has massive peripheral edema. Skin is warm and dry. Hospitalist paged for admission.
[2016-11-25] MEDS ORDERED: Acetaminophen 325 MG TABLET PO PRN (22:32)
[2016-11-25] MEDS ORDERED: Naloxone 0.4 MG/ML INJ IVP PRN (22:32)
[2016-11-25] MEDS ORDERED: *HR* Dextrose 50 % in Water (Syg) 50 ML SYRINGE IVP PRN (23:15)
[2016-11-25] MEDS ORDERED: Dextrose Gel 15 GM PO PRN ×2 (23:15)
[2016-11-25] MEDS ORDERED: D5% in Water 1,000 ML IVC PRN (23:15)
[2016-11-25] MEDS ORDERED: amLODIPine 5 MG TABLET PO SCH (23:15)
--- NOTE | 2016-11-25 23:15 | Internal Med History&Physical ---
Date of Encounter: 11/25/16 Time of Encounter: 23:12 Assessment and Plan (1) Acute on chronic diastolic (congestive) heart failure Current visit: Yes Status: Acute Patient with Diastolic CHF. Last echo 10/19/16 showed LVEF o f60-65% with moderate diastolic dysfunction. He was discharged at that time on 40mg lasix PO TID. His PCP switched his medications to bumex, spiranolactone, zaroxolyn and HCTZ. Patient not compliant with dietary and fluid restrictions. He reports gaining 60lbs in 1 month. CXR shos CHF and moderate pulmonary edema. 80mg lasix IVP given in ED 40mg lasix IVP TID daily weights strict I/Os dietary consult for education on cardiac diet and fluid restriction Consider cardiology consult as patient having multiple admissions for CHF. (2) Hypertension Current visit: Yes Status: Acute Continue home dose of lisinopril and metoprolol. IVP lasix given for diuresis. continue to monitor. Qualifiers: Hypertension type: essential hypertension Qualified Code(s): I10 - Essential (primary) hypertension (3) Type 2 diabetes mellitus Current visit: Yes Status: Acute Check blood sugars ACHS basal dose of insulin Levemir 22u HS sliding scale correction dose ACHS hypoglycemic protocol. 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 Continue Doxycycline 100mg BID. Last date of antibiotics schuduled for 11/30. (5) DVT prophylaxis Current visit: No Status: Acute anti-embolic stockings heparin 5000u SQ TID. Internal Medicine - H&P: HPI Chief complaint: shortness of breath, swelling Admitted From: Emergency Dept Plans for Post Hospital Care: Home History of present illness: Mr. Robles is a 56 year old male with diabetes, chronic kidney disease, CHF, GERD presented to the emergency department today with increasing exertional shortness of breath, increased swelling, and reporting a 60 pound weight gain in the last 1 month. He denies any lightheadedness, dizziness, chest pain, palpitations, numbness and tingling. He was admitted 1 month ago with CHF exacerbation at that time, he was discharged on 40 mg of Lasix by mouth 3 times a day and instructed to eat a low-salt diet and have her fluid restriction. When questioned, patient admitted he did not follow fluid restriction, and reported he tried to avoid salt, however when probed he did say he ate hotdogs, hamburgers and canned food. Evaluation in the emergency department included a chest x-ray which showed congestive heart failure and moderate pulmonary edema troponin was negative at 0.01, BNP was elevated at 496 up from previous of 240. Sugar was elevated to 220. BUN and creatinine were elevated at 38 and 1.93 respectively, but appears to be consistent with baseline. On exam, patient is alert and oriented, in no acute distress. Lungs are diminished, heart has regular rate and rhythm, patient is grossly edematous. Past Med Surg Social Fam HX - Past Medical History Medical history: arthritis, CHF, diabetes, GERD, hypertension, kidney stones, other Psychiatric history: no psych history - Past Surgical History Surgical History: appendectomy, orthopedic, other - Social History Smoking Status: Former smoker Smokeless Tobacco Status: No Alcohol use: none Drug use: none - Family History Mother Living Status: Hx Family Cardiac Disorders: Yes (CAD) Hx Family Endocrine Disorder: Yes (DM) Father Living Status: Still Living Hx Family Cancer: Yes Sister Hx Family Cardiac Disorders: Yes (hypertension, hyperlipidemia) Hx Family Endocrine Disorder: Yes (DMII) Internal Medicine - H&P: Meds Bumetanide [Bumex] 1 mg PO BID 11/25/16 [History] Insulin NPH Hum/Reg Insulin Hm [Novolin 70-30 100 Unit/ml Vial] 20 unit SQ BID 11/25/16 [History] Lisinopril/Hydrochlorothiazide [Zestoretic 20-25 mg Tablet] 1 each PO DAILY [History] Metoprolol [Lopressor] 50 mg PO BID 11/25/16 [History] Potassium Chloride [Klor-Con 10] 10 meq PO BID 11/25/16 [History] Spironolactone [Aldactone] 25 mg PO DAILY 11/25/16 [History] metOLazone [Zaroxolyn] 2.5 mg PO Q48H 11/25/16 [History] Allergies clindamycin Allergy (Verified 11/25/16 17:50) Difficulty Breathing All Systems PM: A 10-system review of systems was performed and is negative for pertinent findings except as documented above in the HPI. - Constitutional Constitutional: no chills, no fever(s), no night sweats - EENT Eyes: no change in vision, no discharge, no pain, no photophobia Ears: no ear discharge, no ear pain, no tinnitus Nose, mouth and throat: no dysphagia, no nasal discharge, no neck pain, no sore throat - Cardiovascular Cardiovascular ROS IM: dyspnea, dyspnea on exertion, edema, paroxysmal nocturnal dyspnea, no chest pain, no diaphoresis, no lightheadedness, no palpitations, no syncope - Respiratory Respiratory: cough, dyspnea, no wheezing, no excessive phlegm production - Gastrointestinal Gastrointestinal: no abdominal pain, no diarrhea, no hematemesis, no hematochezia, no melena, no nausea, no vomiting - Musculoskeletal Musculoskeletal ROS IM: no numbness, no tingling - Integumentary Integumentary IM: no rash, no unusual bruising - Neurological Neurological ROS: no confusion, no convulsions, no focal weakness, no numbness, no tingling, no tremor(s) - Hematologic/Lymphatic Hematologic/Lymphatic: no easy bruising - Constitutional Vitals: Temp Pulse Resp BP Pulse Ox 97.7 F 70 18 192/94 92 11/25/16 22:22 11/25/16 22:22 11/25/16 22:22 11/25/16 22:41 11/25/16 22:22 General appearance: Present: A&O X 3, pleasant, no acute distress - Head Head exam: Present: atraumatic, normocephalic - Eye Eye exam: Present: PERRL, conjuntiva pink, sclera anicteric Pupils: Present: PERRL - Neck Neck exam general surgery: Present: supple, trachea midline. Absent: lymphadenopathy - Respiratory Respiratory exam: Present: decreased breath sounds. Absent: accessory muscle use, rales, rhonchi, wheezes - Cardiovascular Cardiovascular exam: Present: RRR, +S1, +S2. Absent: diastolic murmur, gallop, rubs, systolic murmur - GI/Abdominal GI/Abdominal exam: Present: normal bowel sounds, soft, no peritoneal signs. Absent: distended, tenderness - Extremities Exam Extremities exam: Present: pedal edema (+4 BLE), warm, radial pulses palpable and symetrical. Absent: calf tenderness, cyanotic - Neurological Exam Neurological exam: Present: CN II-XII intact, oriented X3, no focal deficits. Absent: pronater drift, facial droop, speech deficit - Skin Skin exam: Present: dry, intact Internal Med - H&P Results - Labs CBC & Chem 7: 11/25/16 19:03 11/25/16 19:03 Labs: All Lab Results (24 Hours) 11/25/16 11/25/16 11/25/16 Range/Units 19: 19: 19:03 WBC 7.6 (4.3-11.1) K/mcL RBC 3.67 L (4.19-5.50) M/mcL Hgb 9.9 L (12.9-16.9) g/dL Hct 31.3 L (37.5-50.1) % MCV 85.3 (83.0-100.0) fL MCH 27.0 L (28.0-33.3) pg MCHC 31.6 (31.6-35.5) g/dL RDW 13.4 (11.5-14.5) % Plt Count 205 (140-400) K/mcL MPV 10.0 (9.4-12.4) fL Immature Gran % 0.7 (0-4) % Seg Neutrophils % 71.1 % Lymphocytes % 12.6 % Monocytes % 8.4 % Eosinophils % 6.0 % Basophils % 1.2 % Neutrophils # 5.4 (1.6-8.9) K/mcL Lymphocytes # 1.0 (0.6-4.6) K/mcL Monocytes # 0.6 (0.0-1.3) K/mcL Eosinophils # 0.5 (0.0-0.6) K/mcL Basophils # 0.1 (0.0-0.2) K/mcL Sodium 138 (136-145) mEq/L Potassium 4.0 (3.5-4.5) mEq/L Chloride 109 (98-109) mEq/L Carbon Dioxide 21 (19-29) mEq/L BUN 38 H (8-26) mg/dL Creatinine 1.93 H (0.72-1.25) mg/dL Est GFR ( Amer) 44 L (> 60) Est GFR (Non-Af Amer) 36 L (> 60) BUN/Creatinine Ratio 20 (6-26) Glucose 220 H (70-99) mg/dL POC Glucose (58-89) Calculated Osmolality 302 H (280-300) Calcium 8.2 L (8.6-10.8) mg/dL Troponin I 0.01 (0-0.03) ng/mL B-Natriuretic Peptide (0-100) pg/mL 11/25/16 11/25/16 Range/Units 19:03 22:03 WBC (4.3-11.1) K/mcL RBC (4.19-5.50) M/mcL Hgb (12.9-16.9) g/dL Hct (37.5-50.1) % MCV (83.0-100.0) fL MCH (28.0-33.3) pg MCHC (31.6-35.5) g/dL RDW (11.5-14.5) % Plt Count (140-400) K/mcL MPV (9.4-12.4) fL Immature Gran % (0-4) % Seg Neutrophils % % Lymphocytes % % Monocytes % % Eosinophils % % Basophils % % Neutrophils # (1.6-8.9) K/mcL Lymphocytes # (0.6-4.6) K/mcL Monocytes # (0.0-1.3) K/mcL Eosinophils # (0.0-0.6) K/mcL Basophils # (0.0-0.2) K/mcL Sodium (136-145) mEq/L Potassium (3.5-4.5) mEq/L Chloride (98-109) mEq/L Carbon Dioxide (19-29) mEq/L BUN (8-26) mg/dL Creatinine (0.72-1.25) mg/dL Est GFR ( Amer) (> 60) Est GFR (Non-Af Amer) (> 60) BUN/Creatinine Ratio (6-26) Glucose (70-99) mg/dL POC Glucose 164 H (58-89) Calculated Osmolality (280-300) Calcium (8.6-10.8) mg/dL Troponin I (0-0.03) ng/mL B-Natriuretic Peptide 496 H (0-100) pg/mL - Diagnostic Studies Chest x-ray Additional comments: Chest X-Ray 11/25/16 18:37 IMPRESSION: CHF and moderate pulmonary edema, slightly increased from prior comparison exam. D/ / Kyle Willard MD / Kyle Willard MD Interpreting Provider: Kyle Willard MD
[2016-11-25] MEDS: Doxycycline 100 MG CAPSULE PO SCH (23:30)
[2016-11-25] MEDS: Insulin LISPRO 300 UNITS/3 ML VIAL SQ SCH (23:38)
[2016-11-26] MEDS: Lisinopril 20 MG TABLET PO SCH ×2 (00:12→08:31)
[2016-11-26] MEDS: Insulin DETEMIR 100 UNIT/ML X5UNITS SQ SCH ×2 (00:21→21:19)
[2016-11-26 04:20] LABS: Basophils # 0.1 K/mcL (0.0-0.2); Basophils % 1.2 %; Eosinophils # 0.6 K/mcL (0.0-0.6); Eosinophils % 6.8 %; Hematocrit 30.9 % (37.5-50.1); Hemoglobin 9.9 g/dL (12.9-16.9); Immature Granulocytes % 0.4 % (0-4); Lymphocytes # 0.9 K/mcL (0.6-4.6); Lymphocytes % 11.1 %; Mean Corpuscular Volume 84.2 fL (83.0-100.0); Mean Platelet Volume 10.3 fL (9.4-12.4); Monocytes # 0.9 K/mcL (0.0-1.3); Monocytes % 10.2 %; Neutrophils # 5.9 K/mcL (1.6-8.9); Platelet Count 214 K/mcL (140-400); Red Blood Count 3.67 M/mcL (4.19-5.50); Red Cell Distribution Width 13.4 % (11.5-14.5); Segmented Neutrophils % 70.3 %
[2016-11-26] MEDS ORDERED: *HR* Enoxaparin 40 MG/0.4 ML SYRINGE SQ SCH (06:00)
[2016-11-26] MEDS: Furosemide 40 MG/4 ML VIAL IVP SCH ×3 (06:03→16:14)
[2016-11-26] MEDS: *HR* Heparin 5,000 UNIT/ML VIAL SQ SCH ×4 (06:04→21:24)
[2016-11-26 06:23] LABS: Calcium 8.3 mg/dL (8.6-10.8); Chol/HDL Ratio 5.5 (0-4.9); Potassium 4.2 mEq/L (3.5-4.5)
[2016-11-26] MEDS ORDERED: Furosemide 40 MG/4 ML VIAL IVP SCH (08:00)
[2016-11-26] MEDS: Insulin LISPRO 300 UNITS/3 ML VIAL SQ SCH ×4 (08:31→21:19)
[2016-11-26] MEDS: Doxycycline 100 MG CAPSULE PO SCH ×2 (08:31→21:19)
[2016-11-26] MEDS: Ondansetron 4 MG/2 ML VIAL IVP PRN (11:30)
--- NOTE | 2016-11-26 16:09 | Internal Med Progress Note ---
Date of Encounter: 11/26/16 Time of Encounter: 12:20 - Assessment and plan (1) Acute on chronic diastolic (congestive) heart failure Current Visit: Yes Status: Acute Assessment and plan: preserved ejection fraction heart failure, will continue with iv diuretics, monitor input output. still sob and overloaded, poor adherence to diet and fluid restriction, risk of readmissions. patient not fully aware of his home meds. DVT prophylaxis with sq heparin. continue monitoring. monitor electrolytes and renal function tests. insulin therapy. monitor fingerstick. patient with history of cellulitis, luis continue with doxy, plan was to complete course of doxy 11/30/16. (2) Type 2 diabetes mellitus Current Visit: Yes Status: Acute Qualifiers: Diabetes mellitus complication status: with kidney complications Diabetes mellitus complication detail: with chronic kidney disease Diabetes mellitus oysterman insulin use: with oysterman use Chronic kidney disease stage: stage 3 (moderate) Qualified Code(s): E11.22 - Type 2 diabetes mellitus with diabetic chronic kidney disease; N18.3 - Chronic kidney disease, stage 3 ( moderate); Z79.4 - retirement (current) use of insulin (3) DVT prophylaxis Current Visit: No Status: Acute - Subjective Interval history: Reason first encounter with the patient. The patient was seen and examined during rounds. He states that has gained more than 30 pounds since the last couple of weeks, he is complaining of shortness of breath and bilateral leg swelling of lower extremities. - Constitutional Vitals: Temp Pulse Resp BP Pulse Ox 98.3 F 58 20 165/81 96 11/26/16 11:11 11/26/16 11:11 11/26/16 11:11 11/26/16 11:11 11/26/16 11:11 General appearance: Present: A&O X 3, pleasant, no acute distress - Head Head exam: Present: atraumatic, normocephalic - Eye Eye exam: Present: PERRL, conjuntiva pink, sclera anicteric Pupils: Present: PERRL - Neck Neck exam general surgery: Present: supple, trachea midline. Absent: lymphadenopathy - Respiratory Respiratory exam: Present: decreased breath sounds. Absent: accessory muscle use, rales, rhonchi, wheezes - Cardiovascular Cardiovascular exam: Present: RRR, +S1, +S2. Absent: diastolic murmur, gallop, rubs, systolic murmur - GI/Abdominal GI/Abdominal exam: Present: normal bowel sounds, soft, no peritoneal signs. Absent: distended, tenderness - Extremities Exam Extremities exam: Present: pedal edema, warm, radial pulses palpable and symetrical. Absent: calf tenderness, cyanotic - Neurological Exam Neurological exam: Present: CN II-XII intact, oriented X3, no focal deficits. Absent: pronater drift, facial droop, speech deficit - Skin Skin exam: Present: dry, intact Internal Medicine: Result - Labs CBC & Chem 7: 11/26/16 03:39 11/26/16 03:39 Labs: Short CBC 11/26/16 Range/Units 03:39 WBC 8.4 (4.3-11.1) K/mcL Hgb 9.9 L (12.9-16.9) g/dL Hct 30.9 L (37.5-50.1) % Plt Count 214 (140-400) K/mcL Neutrophils # 5.9 (1.6-8.9) K/mcL BMP 11/26/16 03:39 Sodium 140 Potassium 4.2 Chloride 108 Carbon Dioxide 23 BUN 37 H Creatinine 2.07 H Glucose 143 H Calcium 8.3 L Consult Discharge Plan - Plan Referrals: Dyllan Richards MD [Primary Care Provider] - 12/01/16 1:45 pm (Please follow up with ROSELINE William)
--- NOTE | 2016-11-26 18:38 | Electrocardiograph Report ---
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
[2016-11-27 04:15] LABS: Basophils # 0.1 K/mcL (0.0-0.2); Basophils % 1.3 %; Eosinophils # 0.5 K/mcL (0.0-0.6); Eosinophils % 7.4 %; Hematocrit 29.5 % (37.5-50.1); Hemoglobin 9.2 g/dL (12.9-16.9); Immature Granulocytes % 0.3 % (0-4); Lymphocytes # 1.2 K/mcL (0.6-4.6); Lymphocytes % 17.5 %; Mean Corpuscular HGB Conc 31.2 g/dL (31.6-35.5); Mean Corpuscular Hemoglobin 26.5 pg (28.0-33.3); Mean Platelet Volume 9.8 fL (9.4-12.4); Monocytes # 0.8 K/mcL (0.0-1.3); Monocytes % 10.7 %; Neutrophils # 4.4 K/mcL (1.6-8.9); Platelet Count 202 K/mcL (140-400); Red Blood Count 3.47 M/mcL (4.19-5.50); Red Cell Distribution Width 13.6 % (11.5-14.5); Segmented Neutrophils % 62.8 %
[2016-11-27 04:32] LABS: Calcium 8.2 mg/dL (8.6-10.8); Magnesium 1.6 mg/dL (1.6-2.6); Potassium 4.3 mEq/L (3.5-4.5)
[2016-11-27] MEDS: *HR* Heparin 5,000 UNIT/ML VIAL SQ SCH ×3 (06:20→20:55)
[2016-11-27] MEDS: Furosemide 40 MG/4 ML VIAL IVP SCH ×3 (08:47→17:24)
[2016-11-27] MEDS: hydrALAZINE 25 MG TABLET PO SCH ×2 (08:47→20:54)
[2016-11-27] MEDS: Doxycycline 100 MG CAPSULE PO SCH ×2 (08:47→20:54)
[2016-11-27] MEDS: Insulin LISPRO 300 UNITS/3 ML VIAL SQ SCH ×4 (08:47→21:30)
[2016-11-27] MEDS: Albumin 25% 25gram/100mL 25 GM/100 ML IV.SOLN IVC SCH ×2 (08:52→10:26)
[2016-11-27] MEDS ORDERED: metOLazone 2.5 MG TABLET PO ONE (12:31)
[2016-11-27 14:53] LABS: Albumin 2.3 g/dL (3.5-5.0); Albumin/Globulin Ratio 0.5 (1.1-2.2); Bilirubin,Direct 0.2 mg/dL (0.0-0.5); Bilirubin,Indirect 0.2 mg/dL (0.0-1.2); Bilirubin,Total 0.4 mg/dL (0.2-1.2); Globulin 4.3 g/dL (2.4-3.5); Total Protein 6.6 g/dL (6.0-8.3)
--- NOTE | 2016-11-27 15:11 | Internal Med Progress Note ---
Date of Encounter: 11/27/16 Time of Encounter: 11:30 - Assessment and plan (1) Acute on chronic diastolic (congestive) heart failure Current Visit: Yes Status: Acute Assessment and plan: preserved ejection fraction heart failure, will continue with iv diuretics, monitor input output. still overloaded, poor adherence to diet and fluid restriction, risk of readmissions. patient not fully aware of his home meds. DVT prophylaxis with sq heparin. continue monitoring. monitor electrolytes and renal function tests. insulin therapy. monitor fingerstick. Acute kidney injury, we will give Flomax today, give a dose of albumin to see if we can improve his fluid overload and urine output, we will also give a dose of metolazone today and monitor kidney function tests later today and tomorrow in a.m. patient with history of cellulitis, luis continue with doxy, plan was to complete course of doxy 11/30/16. (2) Type 2 diabetes mellitus Current Visit: Yes Status: Acute Qualifiers: Diabetes mellitus complication status: with kidney complications Diabetes mellitus complication detail: with chronic kidney disease Diabetes mellitus intermediate insulin use: with terminal gauger use Chronic kidney disease stage: stage 3 (moderate) Qualified Code(s): E11.22 - Type 2 diabetes mellitus with diabetic chronic kidney disease; N18.3 - Chronic kidney disease, stage 3 ( moderate); Z79.4 - rn long term care (current) use of insulin (3) DVT prophylaxis Current Visit: No Status: Acute (4) Acute renal failure superimposed on stage 3 chronic kidney disease Current Visit: No Status: Acute - Subjective Interval history: The patient was seen and examined during rounds. He states that has gained more than 30 pounds since the last couple of weeks, he is complaining of bilateral leg swelling of lower extremities, denies shortness of breath in this encounter. - Constitutional Vitals: Temp Pulse Resp BP Pulse Ox 97.9 F 54 16 143/69 93 11/27/16 10:43 11/27/16 10:43 11/27/16 10:43 11/27/16 10:43 11/27/16 10:43 General appearance: Present: A&O X 3, pleasant, no acute distress - Head Head exam: Present: atraumatic, normocephalic - Eye Eye exam: Present: PERRL, conjuntiva pink, sclera anicteric Pupils: Present: PERRL - Neck Neck exam general surgery: Present: supple, trachea midline. Absent: lymphadenopathy - Respiratory Respiratory exam: Present: decreased breath sounds. Absent: accessory muscle use, rales, rhonchi, wheezes - Cardiovascular Cardiovascular exam: Present: RRR, +S1, +S2. Absent: diastolic murmur, gallop, rubs, systolic murmur - GI/Abdominal GI/Abdominal exam: Present: normal bowel sounds, soft, no peritoneal signs. Absent: distended, tenderness - Extremities Exam Extremities exam: Present: pedal edema, warm, radial pulses palpable and symetrical. Absent: calf tenderness, cyanotic - Neurological Exam Neurological exam: Present: CN II-XII intact, oriented X3, no focal deficits. Absent: pronater drift, facial droop, speech deficit - Skin Skin exam: Present: dry, intact Internal Medicine: Result - Labs CBC & Chem 7: 11/27/16 04:03 11/27/16 04:03 Labs: Short CBC 11/27/16 Range/Units 04:03 WBC 7.1 (4.3-11.1) K/mcL Hgb 9.2 L (12.9-16.9) g/dL Hct 29.5 L (37.5-50.1) % Plt Count 202 (140-400) K/mcL Neutrophils # 4.4 (1.6-8.9) K/mcL BMP 11/27/16 04:03 Sodium 142 Potassium 4.3 Chloride 110 H Carbon Dioxide 23 BUN 43 H Creatinine 2.45 H Glucose 75 Calcium 8.2 L Liver Function 11/27/16 Range/Units 04:03 Total Bilirubin 0.4 (0.2-1.2) mg/dL Direct Bilirubin 0.2 (0.0-0.5) mg/dL AST 15 (5-34) Units/L ALT 11 (0-55) Units/L Alkaline Phosphatase 120 (38-126) Units/L Albumin 2.3 L (3.5-5.0) g/dL Consult Discharge Plan - Plan Referrals: Dyllan Richards MD [Primary Care Provider] - 12/01/16 1:45 pm (Please follow up with ROSELINE William)
[2016-11-27 16:18] LABS: Calcium 8.4 mg/dL (8.6-10.8); Potassium 4.3 mEq/L (3.5-4.5)
[2016-11-27 18:09] LABS: Creatinine,Urine 104 mg/dL; Microalbum/Creatinine Ratio,Ur 1923 (0-30); Microalbumin,Urine > 2000 mg/L
[2016-11-27 18:49] LABS: Chloride,Urine 102 mEq/L; Potassium,Urine 39.5 mEq/L
[2016-11-27] MEDS: Insulin DETEMIR 100 UNIT/ML X5UNITS SQ SCH (21:30)
[2016-11-28 03:13] LABS: Basophils # 0.1 K/mcL (0.0-0.2); Basophils % 1.1 %; Eosinophils # 0.6 K/mcL (0.0-0.6); Eosinophils % 7.8 %; Hematocrit 32.2 % (37.5-50.1); Hemoglobin 9.8 g/dL (12.9-16.9); Immature Granulocytes % 0.4 % (0-4); Lymphocytes # 1.1 K/mcL (0.6-4.6); Lymphocytes % 14.9 %; Mean Corpuscular HGB Conc 30.4 g/dL (31.6-35.5); Mean Corpuscular Hemoglobin 26.1 pg (28.0-33.3); Mean Corpuscular Volume 85.6 fL (83.0-100.0); Mean Platelet Volume 10.5 fL (9.4-12.4); Monocytes # 0.7 K/mcL (0.0-1.3); Monocytes % 8.6 %; Neutrophils # 5.1 K/mcL (1.6-8.9); Platelet Count 208 K/mcL (140-400); Red Blood Count 3.76 M/mcL (4.19-5.50); Red Cell Distribution Width 13.6 % (11.5-14.5); Segmented Neutrophils % 67.2 %
[2016-11-28 03:26] LABS: Potassium 4.5 mEq/L (3.5-4.5)
[2016-11-28 03:27] LABS: Albumin/Globulin Ratio 0.6 (1.1-2.2); Bilirubin,Direct 0.2 mg/dL (0.0-0.5); Bilirubin,Indirect 0.1 mg/dL (0.0-1.2); Bilirubin,Total 0.3 mg/dL (0.2-1.2); Calcium 8.5 mg/dL (8.6-10.8); Globulin 4.5 g/dL (2.4-3.5); Total Protein 7.4 g/dL (6.0-8.3)
[2016-11-28 03:35] LABS: Albumin 2.9 g/dL (3.5-5.0)
[2016-11-28 03:43] LABS: Creatinine,Urine 134 mg/dL
[2016-11-28 03:47] LABS: Chloride,Urine 79 mEq/L; Potassium,Urine 49.7 mEq/L
[2016-11-28 04:04] LABS: Osmolality,Urine 412 mOsm/kg (300-1090)
[2016-11-28] MEDS: *HR* Heparin 5,000 UNIT/ML VIAL SQ SCH ×3 (06:19→20:53)
[2016-11-28] MEDS: Insulin LISPRO 300 UNITS/3 ML VIAL SQ SCH ×4 (08:44→20:59)
[2016-11-28] MEDS: Furosemide 40 MG/4 ML VIAL IVP SCH (08:57)
[2016-11-28] MEDS: hydrALAZINE 25 MG TABLET PO SCH ×2 (08:57→20:53)
[2016-11-28] MEDS: Doxycycline 100 MG CAPSULE PO SCH ×2 (09:00→20:53)
[2016-11-28] MEDS ORDERED: metOLazone 2.5 MG TABLET PO ONE (11:51)
--- NOTE | 2016-11-28 12:12 | Nephrology Consult Note ---
Date of Encounter: 11/28/16 Time of Encounter: 12:11 Assessment and Plan (1) Acute renal failure superimposed on stage 3 chronic kidney disease Current Visit: No Status: Acute CRISTIAN on CKD stage 3. Likely related to diuresis, but without significant hemodynamic change it is difficult to completely blame the furosemide administration. Will perform CRISTIAN work-up as indicated in the orders. Agree with holding furosemide for now and restricting fluid intake. Will monitor creatinine. Avoid nephrotoxic agents. Adjust medication for renal function. (2) Vitamin D deficiency Current Visit: Yes Status: Acute Recheck vitamin d level. (3) Hyperparathyroidism Current Visit: Yes Status: Acute Repeat PTH. (4) Volume overload Current Visit: Yes Status: Acute Unclear etiology. Patient with low albumin. His EF was normal in October, but he did have diastolic dysfunction. He also has pulmonary hypertension, but has pulmonary edema. Patient may need limited echo to ensure his EF hasn't decreased. Will check urine protein. Patient needs diuresis, but this is being held in the face of CRISTIAN with diuresis. Qualifiers: Qualified Code(s): E87.70 - Fluid overload, unspecified (5) Morbid obesity Current Visit: Yes Status: Acute Outpatient management. Qualifiers: Qualified Code(s): E66.01 - Morbid (severe) obesity due to excess calories (6) CKD (chronic kidney disease), stage III Current Visit: No Status: Chronic Will perform CKD workup. (7) Type 2 diabetes mellitus Current Visit: Yes Status: Acute Per primary team. Qualifiers: Diabetes mellitus complication status: with kidney complications Diabetes mellitus complication detail: with chronic kidney disease Diabetes mellitus termite exterminator insulin use: with senior care use Chronic kidney disease stage: stage 3 (moderate) Qualified Code(s): E11.22 - Type 2 diabetes mellitus with diabetic chronic kidney disease; N18.3 - Chronic kidney disease, stage 3 ( moderate); Z79.4 - [facility] (current) use of insulin (8) Anemia Current Visit: No Status: Chronic iron stores, vitamin b12 and folate level ordered. Qualifiers: Anemia type: unspecified type Qualified Code(s): D64.9 - Anemia, unspecified History of Present Illness - Reason for Consult Consult date: 11/28/16 Acute Kidney Injury, Chronic Kidney Disease - Chief Complaint CRISTIAN on CKD - History of Present Illness Mr. Robles is a 56 yo man with CKD who presents with dyspnea and 60pound weight gain over the last 1-2 months. He has significant swelling below his waist including his scrotum. He denies dysuria, hematuria, or feeling that he incompletely voids. He denies change in his medications. He denies chest pain and reports that his breathing has improved with iv furosemide after admission. He reports a year of orthopnea since a foot infection and subsequent CRISTIAN that resolved a year ago. He denies rashes or joint swelling. Past Med Surg Social Fam HX - Past Medical History Medical history: arthritis, CHF, diabetes, GERD, hypertension, kidney stones, other Psychiatric history: no psych history - Past Surgical History Surgical History: appendectomy, orthopedic, other - Social History Smoking Status: Former smoker Smokeless Tobacco Status: No Alcohol use: none Drug use: none - Family History Mother Living Status: Hx Family Cardiac Disorders: Yes (CAD) Hx Family Endocrine Disorder: Yes (DM) Father Living Status: Still Living Hx Family Cancer: Yes Sister Hx Family Cardiac Disorders: Yes (hypertension, hyperlipidemia) Hx Family Endocrine Disorder: Yes (DMII) Medications and Allergies Bumetanide [Bumex] 1 mg PO BID 11/25/16 [History] Insulin NPH Hum/Reg Insulin Hm [Novolin 70-30 100 Unit/ml Vial] 20 unit SQ BID 11/25/16 [History] Lisinopril/Hydrochlorothiazide [Zestoretic 20-25 mg Tablet] 1 each PO DAILY [History] Metoprolol [Lopressor] 50 mg PO BID 11/25/16 [History] Potassium Chloride [Klor-Con 10] 10 meq PO BID 11/25/16 [History] Spironolactone [Aldactone] 25 mg PO DAILY 11/25/16 [History] metOLazone [Zaroxolyn] 2.5 mg PO Q48H 11/25/16 [History] Allergies clindamycin Allergy (Verified 11/25/16 17:50) Difficulty Breathing Review of Systems All Systems: reviewed and no additional remarkable complaints except as stated Exam - Vital Signs Vital signs: Initial Vital Signs Temp Pulse Resp BP Pulse Ox 98.1 F 72 22 201/89 94 11/25/16 17:46 11/25/16 17:46 11/25/16 17:46 11/25/16 17:46 11/25/16 17:46 Vital Signs - Last 8 Hours Temp Pulse Resp BP Pulse Ox 11/28/16 11:36 97.7 F 65 18 181/83 94 11/28/16 08:35 98.4 F 61 18 174/78 94 11/28/16 04:58 98 F 60 18 167/83 96 Intake and Output 11/27/16 11/28/16 11/28/16 23:59 07:59 15:59 Intake Total 480 / 480 360 / 360 Output Total 700 / 700 325 / 325 200 / 200 Balance -220 / -220 -325 / -325 160 / 160 Intake: Oral 480 / 480 360 / 360 Output: Urine 700 / 700 325 / 325 200 / 200 Other: Meal Breakfast Percent of Meal Consumed 100% # Voids 2 Weight 138.164 kg Blood Glucose* 130 123 Patient Weight 11/28/16 23:59 Weight 138.164 kg - General Appearance General appearance: well-developed, well-nourished, obese EENT: ATNC Neck: supple Respiratory: clear Cardiology: edema (3+edema bilateral lower extremities. ), regular rate, regular rhythm Gastrointestinal: no tenderness, obese Integumentary: warm and dry Neurologic: alert and oriented x3 Musculoskeletal: no cyanosis Psychiatric: mood/affect appropriate Results - Lab Results 11/28/16 02:42 11/28/16 02:42 Most recent lab results Calcium 8.5 mg/dL (8.6-10.8) L 11/28/16 02:42 Magnesium 1.6 mg/dL (1.6-2.6) 11/27/16 04:03 Urine Creatinine 134 mg/dL 11/28/16 03:10 Urine Sodium 83.0 mEq/L 11/28/16 03:10 Consult Discharge Plan - Plan Referrals: Dlylan Richards MD [Primary Care Provider] - 12/01/16 1:45 pm (Please follow up with ROSELINE William)
[2016-11-28 15:08] LABS: Bilirubin,Urine Negative (Negative); Blood,Urine Negative (Negative); Clarity,Urine Clear (Clear); Color,Urine Yellow (Yellow); Glucose,Urine (UA) 100 mg/dL (Normal); Ketones,Urine Negative (Negative); Leukocyte Esterase,Urine Negative (Negative); Nitrite,Urine Negative (Negative); Protein,Urine >=300 mg/dL (Neg-Trace); Specific Gravity,Urine 1.021 (1.010-1.025); Urobilinogen,Urine Normal (Normal)
[2016-11-28 15:10] LABS: Bacteria,Urine None Seen per hpf (None-Few); Hyaline Casts,Urine None Seen per lpf (None-Few); Squamous Epithelial Cell,Urine Many per lpf (None-Few); WBC,Urine 0-3 per hpf (0-3)
[2016-11-28 17:03] LABS: Protein/Creatinine Ratio,Urine 6.99 mg/mg (0-0.20)
--- NOTE | 2016-11-28 17:56 | ECHO - Doppler Report ---
qLimited Echocardiogram Name: Román Robles Date of Study: 11/28/2016 Date: 1960 Ht: 69.0 in Medical Record#: [id number] Age: 56 Wt: 304.0 lb Gender: Male BSA: 2.47 Order #: [id number] Location: [facility] Room #: 2A16 Reading Physician: Juan Evans MD, [facility] Case Manager: Elizabeth Blum RVT Ordering Physician: José David MD Primary Physician: Dyllan Richards MD Indications: Assess LV function, Edema Impressions: LVEF 60-65%. Mild concentric left ventricular hypertrophy. Left Ventricular Wall Motion: Rest Echo Findings All wall segments showed normal motion. Findings: Study Quality * Technically adequate exam. ECG Findings * Sinus rhythm with BBB. Left Ventricle * LVEF 60-65%. * Mild concentric left ventricular hypertrophy. Left Atrium * Normal left atrial size. History Hypertension Diabetes Family History of CAD Congestive Heart Failure 10/19/2016 a Previous Echo was performed. Measurements: BP: 181/ 83 2D Normal Values RVIDd: 3.94 cm <2.7 cm IVSd: 1.19 cm 0.6 - 1.0 cm LVIDd: 5.11 cm 3.7 - 5.6 cm LVPWd: 1.25 cm 0.6 - 1.1 cm LVIDs: 3.56 cm 1.5 - 3.6 cm LA: 4.00 cm 2.0 - 4.0cm %FS: 30.30 cm >25 % LA volume: Updated by Juan Evans MD, [facility] on 11/28/2016 5:49:34 PM electronically signed on 11/28/2016 5:50:32 PM with status of Final Wall Motion [place]: 1=Normal, 2=Hypokinesis, 3=Akinesis, 4=Dyskinesis, 5=Aneurysmal, 6=Hyperkinetic, X=Not Visualized (Blank)=Missing
[2016-11-28] MEDS: Insulin DETEMIR 100 UNIT/ML X5UNITS SQ SCH (21:00)
[2016-11-29 05:37] LABS: Basophils # 0.1 K/mcL (0.0-0.2); Eosinophils # 0.5 K/mcL (0.0-0.6); Eosinophils % 6.2 %; Hematocrit 32.4 % (37.5-50.1); Hemoglobin 10.1 g/dL (12.9-16.9); Immature Granulocytes % 0.4 % (0-4); Lymphocytes # 1.1 K/mcL (0.6-4.6); Lymphocytes % 13.8 %; Mean Corpuscular HGB Conc 31.2 g/dL (31.6-35.5); Mean Corpuscular Hemoglobin 26.6 pg (28.0-33.3); Mean Corpuscular Volume 85.3 fL (83.0-100.0); Mean Platelet Volume 10.5 fL (9.4-12.4); Monocytes # 0.8 K/mcL (0.0-1.3); Monocytes % 9.3 %; Neutrophils # 5.7 K/mcL (1.6-8.9); Platelet Count 227 K/mcL (140-400); Red Cell Distribution Width 13.8 % (11.5-14.5); Segmented Neutrophils % 69.3 %
[2016-11-29] MEDS: *HR* Heparin 5,000 UNIT/ML VIAL SQ SCH ×3 (05:40→21:10)
[2016-11-29 05:48] LABS: Ionized Calcium 1.05 mmol/L (1.15-1.35)
[2016-11-29 05:55] LABS: Albumin 2.8 g/dL (3.5-5.0); Albumin/Globulin Ratio 0.6 (1.1-2.2); Bilirubin,Direct 0.2 mg/dL (0.0-0.5); Bilirubin,Indirect 0.2 mg/dL (0.0-1.2); Bilirubin,Total 0.4 mg/dL (0.2-1.2); Calcium 8.3 mg/dL (8.6-10.8); Globulin 4.6 g/dL (2.4-3.5); Phosphorous 5.7 mg/dL (2.3-4.7); Potassium 4.4 mEq/L (3.5-4.5); Total Protein 7.4 g/dL (6.0-8.3)
[2016-11-29 06:04] LABS: Rheumatoid Factor < 15 IU/mL (0-29)
[2016-11-29 06:32] LABS: Folate 5.5 ng/mL (7.0-31.4); Vitamin B12 398 pg/mL (213-816)
[2016-11-29] MEDS: Insulin LISPRO 300 UNITS/3 ML VIAL SQ SCH ×4 (07:43→21:13)
[2016-11-29] MEDS: Doxycycline 100 MG CAPSULE PO SCH ×2 (08:26→21:10)
[2016-11-29] MEDS: hydrALAZINE 25 MG TABLET PO SCH ×2 (08:27→21:09)
--- NOTE | 2016-11-29 11:10 | Internal Med Progress Note ---
Date of Encounter: 11/29/16 Time of Encounter: 10:00 - Assessment and plan (1) Acute on chronic diastolic (congestive) heart failure Current Visit: Yes Status: Acute Assessment and plan: Preserved ejection fraction heart failure, monitor input output. Still overloaded, poor adherence to diet and fluid restriction, risk of readmissions. DVT prophylaxis with sq heparin. Continue monitoring. Monitor electrolytes and renal function tests. Insulin therapy. Monitor fingerstick. Acute kidney injury, no evidence of obstruction in renal sonogram, follow nephrology recommendations. (2) Type 2 diabetes mellitus Current Visit: Yes Status: Acute Qualifiers: Diabetes mellitus complication status: with kidney complications Diabetes mellitus complication detail: with chronic kidney disease Diabetes mellitus termite technician insulin use: with [facility] use Chronic kidney disease stage: stage 3 (moderate) Qualified Code(s): E11.22 - Type 2 diabetes mellitus with diabetic chronic kidney disease; N18.3 - Chronic kidney disease, stage 3 ( moderate); Z79.4 - termite exterminator (current) use of insulin (3) DVT prophylaxis Current Visit: No Status: Acute (4) Acute renal failure superimposed on stage 3 chronic kidney disease Current Visit: No Status: Acute - Subjective Interval history: The patient was seen and examined during rounds. He is complaining of bilateral leg swelling of lower extremities, denies shortness of breath in this encounter. - Constitutional Vitals: Temp Pulse Resp BP Pulse Ox 97.8 F 62 18 146/73 93 11/29/16 07:29 11/29/16 07:29 11/29/16 07:29 11/29/16 07:29 11/29/16 07:29 General appearance: Present: A&O X 3, morbidly obese, pleasant, no acute distress - Head Head exam: Present: atraumatic, normocephalic - Eye Eye exam: Present: PERRL, conjuntiva pink, sclera anicteric Pupils: Present: PERRL - Neck Neck exam general surgery: Present: supple, trachea midline. Absent: lymphadenopathy - Respiratory Respiratory exam: Present: CTAB. Absent: accessory muscle use, rales, rhonchi, wheezes - Cardiovascular Cardiovascular exam: Present: RRR, +S1, +S2. Absent: diastolic murmur, gallop, rubs, systolic murmur - GI/Abdominal GI/Abdominal exam: Present: normal bowel sounds, soft, no peritoneal signs. Absent: distended, tenderness - Extremities Exam Extremities exam: Present: pedal edema, warm, radial pulses palpable and symetrical. Absent: calf tenderness, cyanotic - Neurological Exam Neurological exam: Present: CN II-XII intact, oriented X3, no focal deficits. Absent: pronater drift, facial droop, speech deficit - Skin Skin exam: Present: dry, intact Internal Medicine: Result - Labs CBC & Chem 7: 11/29/16 05:24 11/29/16 05:24 Labs: Short CBC 11/29/16 Range/Units 05:24 WBC 8.2 (4.3-11.1) K/mcL Hgb 10.1 L (12.9-16.9) g/dL Hct 32.4 L (37.5-50.1) % Plt Count 227 (140-400) K/mcL Neutrophils # 5.7 (1.6-8.9) K/mcL BMP 11/29/16 05:24 Sodium 141 Potassium 4.4 Chloride 107 Carbon Dioxide 22 BUN 60 H Creatinine 2.93 H Glucose 138 H Calcium 8.3 L Cardiac Enzymes 11/29/16 Range/Units 05:24 Troponin I 0.02 (0-0.03) ng/mL Liver Function 11/29/16 Range/Units 05:24 Total Bilirubin 0.4 (0.2-1.2) mg/dL Direct Bilirubin 0.2 (0.0-0.5) mg/dL AST 18 (5-34) Units/L ALT 15 (0-55) Units/L Alkaline Phosphatase 163 H (38-126) Units/L Albumin 2.8 L (3.5-5.0) g/dL Urine 11/28/16 Range/Units 15:00 Urine Color Yellow (Yellow) Urine Clarity Clear (Clear) Urine pH 6.0 (5.0-8.0) pH Units Ur Specific Godwin 1.021 (1.010-1.025) Urine Protein >=300 H (Neg-Trace) mg/dL Urine Glucose (UA) 100 H (Normal) mg/dL - Impressions Impressions Retroperitoneum Ultrasound 11/28/16 12:42 IMPRESSION: Unremarkable ultrasound of the kidneys and urinary bladder. D/ / Azra Spaulding Cha, MD / Azra Spaulding Cha, MD Interpreting Provider: Azra Spaulding Cha, MD Consult Discharge Plan - Plan Referrals: Dyllan Richards MD [Primary Care Provider] - 12/01/16 1:45 pm (Please follow up with ROSELINE William)
[2016-11-29] MEDS: Folic Acid 1 MG TABLET PO SCH (12:36)
[2016-11-29] MEDS: Calcium Acetate 667 MG CAPSULE PO SCH ×2 (12:37→17:00)
--- NOTE | 2016-11-29 13:03 | Nephrology Progress Note ---
Date of Encounter: 11/29/16 Time of Encounter: 13:01 - Assessment and Plan (1) Nephrotic syndrome Current Visit: Yes Status: Acute Patient's edema is secondary to nephrotic syndrome. His echocardiogram reveals normal EF and minimal diastolic dysfunction. He does not have cirrhosis. Will work-up with a biopsy of his kidney. Will restart diuretic if his renal function remains stable Wednesday. Serology for other causes of nephrotic syndrome is pending. (2) Acute renal failure superimposed on stage 3 chronic kidney disease Current Visit: No Status: Acute CRISTIAN on CKD of unclear etiology, but suspect at least part may be secondary from hemodynamic changes from attempting to diurese the patient. With the increase to nephrotic range proteinuria there could also be an intrinsic process going on as well. Will order a renal biopsy. Spoke with patient who is in agreement. NPO after midnight. Renal dose medications. Avoid nephrotoxins. (3) Vitamin D deficiency Current Visit: Yes Status: Acute Re-ordered. Awaiting results. (4) Hyperparathyroidism Current Visit: Yes Status: Acute Control phosphorus and ensure vitamin d stores are replete. Follow. (5) Morbid obesity Current Visit: Yes Status: Acute Outpatient management. Qualifiers: Qualified Code(s): E66.01 - Morbid (severe) obesity due to excess calories (6) Type 2 diabetes mellitus Current Visit: Yes Status: Acute Per primary team. Qualifiers: Diabetes mellitus complication status: with kidney complications Diabetes mellitus complication detail: with chronic kidney disease Diabetes mellitus prison insulin use: with prison use Chronic kidney disease stage: stage 3 (moderate) Qualified Code(s): E11.22 - Type 2 diabetes mellitus with diabetic chronic kidney disease; N18.3 - Chronic kidney disease, stage 3 ( moderate); Z79.4 - prison (current) use of insulin (7) Anemia Current Visit: No Status: Chronic iron and folate deficiency. Replacement for both ordered. For iron deficiency patient does not recall a colonoscopy. Will check stool for occult blood. Primary team to determine if patient warrants endoscopy inpatient vs outpatient. Qualifiers: Anemia type: unspecified type Qualified Code(s): D64.9 - Anemia, unspecified (8) Irritable bowel Current Visit: Yes Status: Acute Possible IBS based on fluctuation between constipation and diarrhea. Added fiber therapy. Defer further management to primary team. Qualifiers: Qualified Code(s): K58.9 - Irritable bowel syndrome without diarrhea Subjective Principal diagnosis: CRISTIAN/CKD Interval history: Patient seen. He has no new complaint. He feels tired, but states this has been present for a while. He denies blood in his stool or melena, but complains of intermittent constipation and diarrhea. His review of systems otherwise is stable. Objective - Vital Signs Vital signs: Vital Signs Temp Pulse Resp BP Pulse Ox 11/29/16 12:03 97.9 F 56 18 144/72 94 11/29/16 07:29 97.8 F 62 18 146/73 93 11/29/16 04:53 98 F 60 18 161/88 95 11/29/16 00:09 97.7 F 64 18 160/98 94 11/28/16 19:01 97.5 F L 56 20 163/88 96 11/28/16 16:30 97.5 F L 62 18 177/75 95 Intake and Output 11/28/16 11/29/16 11/29/16 23:59 07:59 15:59 Intake Total 240 / 240 Output Total 200 / 200 300 / 300 Balance 40 / 40 -300 / -300 Intake: Oral 240 / 240 Output: Urine 200 / 200 300 / 300 Other: Weight 139.888 kg Blood Glucose* 156 124 133 Patient Weight 11/29/16 23:59 Weight 139.888 kg - General Appearance General appearance: Present: well-developed, well-nourished, obese EENT: Present: ATNC Neck: Present: supple Additional Comments: respirations are unlabored. Cardiology: Present: regular rate Integumentary: Present: warm and dry Neurologic: Present: alert and oriented x3 Psychiatric: Present: mood/affect appropriate - Lab 11/29/16 05:24 11/29/16 05:24 Most recent lab results Calcium 8.3 mg/dL (8.6-10.8) L 11/29/16 05:24 Phosphorus 5.7 mg/dL (2.3-4.7) H 11/29/16 05:24 Magnesium 1.6 mg/dL (1.6-2.6) 11/27/16 04:03 Urine Creatinine 120 mg/dL 11/28/16 15:00 Urine Sodium 83.0 mEq/L 11/28/16 03:10 Urine Total Protein 839 mg/dL (1-14) H 11/28/16 15:00 Consult Discharge Plan - Plan Referrals: Dyllan Richards MD [Primary Care Provider] - 12/01/16 1:45 pm (Please follow up with ROSELINE William)
[2016-11-29] MEDS: Iron Sucrose Complex 200 MG in 0.9 % Sodium Chloride 100 ML IVPB SCH (13:13)
[2016-11-29] MEDS: Psyllium 1 PACKET POWD.PACK PO SCH ×2 (16:11→21:10)
[2016-11-29] MEDS: Ondansetron 4 MG/2 ML VIAL IVP PRN (18:16)
[2016-11-29] MEDS: Insulin DETEMIR 100 UNIT/ML X5UNITS SQ SCH (21:13)
[2016-11-30 04:43] LABS: INR 1.3; Prothrombin Time 13.8 Seconds (9.4-12.1)
[2016-11-30 04:45] LABS: Activated Partial Thrombo Time 34.6 Seconds (26.0-36.0)
[2016-11-30 04:51] LABS: Basophils # 0.1 K/mcL (0.0-0.2); Basophils % 1.4 %; Eosinophils # 0.4 K/mcL (0.0-0.6); Eosinophils % 6.2 %; Hematocrit 30.5 % (37.5-50.1); Hemoglobin 9.4 g/dL (12.9-16.9); Immature Granulocytes % 0.4 % (0-4); Lymphocytes # 0.9 K/mcL (0.6-4.6); Lymphocytes % 13.3 %; Mean Corpuscular HGB Conc 30.8 g/dL (31.6-35.5); Mean Corpuscular Hemoglobin 26.4 pg (28.0-33.3); Mean Corpuscular Volume 85.7 fL (83.0-100.0); Mean Platelet Volume 10.9 fL (9.4-12.4); Monocytes # 0.7 K/mcL (0.0-1.3); Monocytes % 10.2 %; Neutrophils # 4.9 K/mcL (1.6-8.9); Platelet Count 208 K/mcL (140-400); Red Blood Count 3.56 M/mcL (4.19-5.50); Red Cell Distribution Width 14.1 % (11.5-14.5); Segmented Neutrophils % 68.5 %
[2016-11-30 05:00] LABS: Albumin 2.7 g/dL (3.5-5.0); Albumin/Globulin Ratio 0.6 (1.1-2.2); Bilirubin,Direct 0.2 mg/dL (0.0-0.5); Bilirubin,Indirect 0.4 mg/dL (0.0-1.2); Bilirubin,Total 0.6 mg/dL (0.2-1.2); Calcium 8.4 mg/dL (8.6-10.8); Globulin 4.6 g/dL (2.4-3.5); Potassium 4.7 mEq/L (3.5-4.5); Total Protein 7.3 g/dL (6.0-8.3); Uric Acid 10.6 mg/dL (3.5-7.2)
[2016-11-30] MEDS: *HR* Heparin 5,000 UNIT/ML VIAL SQ SCH ×3 (05:56→20:31)
[2016-11-30] MEDS: Insulin LISPRO 300 UNITS/3 ML VIAL SQ SCH ×4 (09:19→21:30)
[2016-11-30] MEDS: Doxycycline 100 MG CAPSULE PO SCH ×2 (09:37→20:31)
[2016-11-30] MEDS: Folic Acid 1 MG TABLET PO SCH (09:38)
[2016-11-30] MEDS: hydrALAZINE 25 MG TABLET PO SCH ×2 (09:38→20:31)
[2016-11-30] MEDS: Iron Sucrose Complex 200 MG in 0.9 % Sodium Chloride 100 ML IVPB SCH (09:38)
[2016-11-30] MEDS: Calcium Acetate 667 MG CAPSULE PO SCH ×3 (09:38→16:34)
[2016-11-30] MEDS: Psyllium 1 PACKET POWD.PACK PO SCH ×3 (09:39→21:30)
--- NOTE | 2016-11-30 09:45 | Nephrology Progress Note ---
Date of Encounter: 11/30/16 Time of Encounter: 09:44 - Assessment and Plan (1) Nephrotic syndrome Current Visit: Yes Status: Acute Patient with previous history of proteinuria likely secondary to longstanding uncontrolled diabetes was determined to have a Protein/Cr ratio of 6.99 on this admission and significant 3+ pitting lower extremity edema. Echo returned normal EF and mild concentric LVH. BUN 66, Cr 2.95, GFR 22. Renal biopsy per IR later today. One dose of 40mg lasix this morning, monitor kidney function. Continue montoring labs and I&O Avoid nephrotoxic agents, continue with renal protective strategy. No urgent hemodialysis at this time. Serologies for nephrotic syndrome and CRISTIAN workup pending. (2) Acute renal failure superimposed on stage 3 chronic kidney disease Current Visit: Yes Status: Acute CRISTAIN on CKD stage 3 May be related to attempts to diurese patient. Suspect an intrinsic process with Urine sodium high vs atn. Patients Cr appears stable at just below 3.0. BUN 66, Cr 2.95, GFR 22. Renal biopsy ordered. IR to complete later today. Continue with renal protective strategy, avoid nephrotoxic agents. No need for urgent dialysis. (3) Vitamin D deficiency Current Visit: Yes Status: Acute Vitamin D 9L. Repelete and follow as needed. (4) Hyperparathyroidism Current Visit: Yes Status: Acute Phosphorus 5.7H Vitamin D 9L Phos-Lo ordered Vitamin D ordered. Continue to monitor levels and replete vit D as needed. (5) Morbid obesity with BMI of 45.0-49.9, adult Current Visit: Yes Status: Chronic Counseled patient on importance of diet, exercise, and weight loss on terminal supervisor health management. (6) Type 2 diabetes mellitus Current Visit: Yes Status: Acute Known history of type II diabetes with history of proteinuria prior to this admission. Continue to monitor. Continue per Hospitalist plan. Qualifiers: Diabetes mellitus complication status: with kidney complications Diabetes mellitus complication detail: with chronic kidney disease Diabetes mellitus terminal supervisor insulin use: with terminal supervisor use Chronic kidney disease stage: stage 3 (moderate) Qualified Code(s): E11.22 - Type 2 diabetes mellitus with diabetic chronic kidney disease; N18.3 - Chronic kidney disease, stage 3 ( moderate); Z79.4 - custodial (current) use of insulin (7) Anemia Current Visit: Yes Status: Chronic Iron deficiency anemia and anemia of chronic disease. Iron 30L, Iron saturation 11% L, Ferritin 0.4. Folate 5.5L Vitamin B12 IM ordered. Replete and continue to monitor. Recommend workup for iron deficiency including possible occult blood stool and colonscopy. Qualifiers: Anemia type: unspecified type Qualified Code(s): D64.9 - Anemia, unspecified (8) Hyperuricemia Current Visit: Yes Status: Acute Uric acid level 10.6H. Continue to monitor. No treatment at this time in absence of symptoms and CRISTIAN. Recommend lifestyle modifications. Subjective Principal diagnosis: CRISTIAN/CKD Interval history: Mr. Robles is a 56 year old male with history of CKD stage 3, diastolic chf, diabetes on terminal supervisor insulin, and gerd who presented to the ED with complain of dyspnea, increasing lower extremedity edema, and 60Lb weight gain for the past month despite increasing amounts of diruretics. Patient reports he did not adhere to the low salt and fluid restriction diet that was recommended. On arrival the patient's Cr was 1.93. Overnight the patient reports doing well without new complaints. Reports continued swelling of his legs bilaterally, unimproved from yesterday, but reports being able to sleep last night while sitting on the edge of the bed. Patient reports urinating very little overnight, noted in I&O about 500mL/24 hours. Patient denies shortness of breath when sitting up, but reports orthopnea when elevating his legs. Patient denies fevers, chills, sweats, changes in vision or hearing, chest pain, abdominal pain, changes in bowels, weakness, or loss of sensation. Objective - Vital Signs Vital signs: Vital Signs Temp Pulse Resp BP Pulse Ox 11/30/16 07:21 98.7 F 64 18 168/75 95 11/30/16 06:02 97.8 F 11/30/16 02:22 97.8 F 53 16 130/78 93 11/29/16 21:00 97.8 F 68 20 155/70 93 11/29/16 17:48 97.6 F 71 18 170/83 94 11/29/16 12:03 97.9 F 56 18 144/72 94 Intake and Output 11/29/16 11/30/16 11/30/16 23:59 07:59 15:59 Intake Total 240 / 240 Balance 240 / 240 Intake: Oral 240 / 240 Other: Meal Dinner Percent of Meal Consumed 30% Weight 139.888 kg Blood Glucose* 140 109 Patient Weight 11/30/16 23:59 Weight 139.888 kg - General Appearance General appearance: Present: well-developed, well-nourished, appears started age , obese EENT: Present: PERRL, mucous membranes moist Neck: Present: no JVD, no carotid bruit, supple Respiratory: Present: clear Cardiology: Present: no murmurs, regular rate, regular rhythm, normal S1, normal S2 Additional Comments: 3+ lower extremity pitting edema bilaterally Gastrointestinal: Present: normoactive bowel sounds, no tenderness, no guarding , no masses Integumentary: Present: no rash, warm and dry, hyperpigmentation (lower extremities.) Neurologic: Present: no focal deficit, no asterixis, alert and oriented x3, strength 5/5, CN 3-12 intact Musculoskeletal: Present: no erythema, no cyanosis Psychiatric: Present: mood/affect appropriate, cooperative - Lab 11/30/16 04:30 11/30/16 04:30 Most recent lab results Calcium 8.4 mg/dL (8.6-10.8) L 11/30/16 04:30 Phosphorus 5.7 mg/dL (2.3-4.7) H 11/29/16 05:24 Magnesium 1.6 mg/dL (1.6-2.6) 11/27/16 04:03 Urine Creatinine 134 mg/dL 11/29/16 16:45 Urine Sodium 83.0 mEq/L 11/28/16 03:10 Urine Total Protein 839 mg/dL (1-14) H 11/28/16 15:00 Consult Discharge Plan - Plan Referrals: Dyllan Richards MD [Primary Care Provider] - 12/08/16 9:45 am (Please follow up with ROSELINE William)
[2016-11-30] MEDS ORDERED: Furosemide 40 MG TABLET PO ONE (10:08)
[2016-11-30] MEDS ORDERED: Cyanocobalamin (B-12) 1,000 MCG/ML VIAL IM ONE (11:00)
[2016-11-30] MEDS ORDERED: Cholecalciferol (D-3) 1,000 UNIT TABLET PO ONE (11:18)
[2016-11-30] MEDS ORDERED: Aspirin 325 MG TABLET PO ONE (11:46)
--- NOTE | 2016-11-30 14:15 | Internal Med Progress Note ---
Date of Encounter: 11/30/16 Time of Encounter: 11:00 - Assessment and plan (1) Acute renal failure superimposed on stage 3 chronic kidney disease Current Visit: Yes Status: Acute Assessment and plan: Patient with worsening kidney function tests in the setting of significant proteinuria. Plan is to undergo kidney biopsy today for further workup. We will follow recommendations by nephrology. Lasix was held, today he was given a dose of Lasix. Continue monitoring input and output. (2) Type 2 diabetes mellitus Current Visit: Yes Status: Acute Qualifiers: Diabetes mellitus complication status: with kidney complications Diabetes mellitus complication detail: with chronic kidney disease Diabetes mellitus correction insulin use: with intermodal truck driver use Chronic kidney disease stage: stage 3 (moderate) Qualified Code(s): E11.22 - Type 2 diabetes mellitus with diabetic chronic kidney disease; N18.3 - Chronic kidney disease, stage 3 ( moderate); Z79.4 - [facility] (current) use of insulin (3) Acute on chronic diastolic (congestive) heart failure Current Visit: Yes Status: Acute Assessment and plan: Preserved ejection fraction heart failure, monitor input output. Still overloaded, poor adherence to diet and fluid restriction, risk of readmissions. DVT prophylaxis with sq heparin. Continue monitoring. Monitor electrolytes and renal function tests. Insulin therapy. Monitor fingerstick. Acute kidney injury, no evidence of obstruction in renal sonogram. (4) DVT prophylaxis Current Visit: No Status: Acute - Subjective Interval history: The patient was seen and examined during rounds. He is complaining of bilateral leg swelling of lower extremities, denies shortness of breath in this encounter. - Constitutional Vitals: Temp Pulse Resp BP Pulse Ox 98.4 F 68 12 149/71 95 11/30/16 11:00 11/30/16 14:12 11/30/16 14:12 11/30/16 14:12 11/30/16 14:12 General appearance: Present: A&O X 3, morbidly obese, pleasant, no acute distress - Head Head exam: Present: atraumatic, normocephalic - Eye Eye exam: Present: PERRL, conjuntiva pink, sclera anicteric Pupils: Present: PERRL - Neck Neck exam general surgery: Present: supple, trachea midline. Absent: lymphadenopathy - Respiratory Respiratory exam: Present: decreased breath sounds. Absent: accessory muscle use, rales, rhonchi, wheezes - Cardiovascular Cardiovascular exam: Present: RRR, +S1, +S2. Absent: diastolic murmur, gallop, rubs, systolic murmur - GI/Abdominal GI/Abdominal exam: Present: normal bowel sounds, soft, no peritoneal signs. Absent: distended, tenderness - Extremities Exam Extremities exam: Present: pedal edema, warm, radial pulses palpable and symetrical. Absent: calf tenderness, cyanotic - Neurological Exam Neurological exam: Present: CN II-XII intact, oriented X3, no focal deficits. Absent: pronater drift, facial droop, speech deficit - Skin Skin exam: Present: dry, intact Internal Medicine: Result - Labs CBC & Chem 7: 11/30/16 04:30 11/30/16 04:30 Labs: Short CBC 11/30/16 Range/Units 04:30 WBC 7.1 (4.3-11.1) K/mcL Hgb 9.4 L (12.9-16.9) g/dL Hct 30.5 L (37.5-50.1) % Plt Count 208 (140-400) K/mcL Neutrophils # 4.9 (1.6-8.9) K/mcL BMP 11/30/16 04:30 Sodium 140 Potassium 4.7 H Chloride 109 Carbon Dioxide 22 BUN 66 H Creatinine 2.95 H Glucose 107 H Calcium 8.4 L Cardiac Enzymes 11/30/16 Range/Units 11:56 Troponin I 0.02 (0-0.03) ng/mL Liver Function 11/30/16 Range/Units 04:30 Total Bilirubin 0.6 (0.2-1.2) mg/dL Direct Bilirubin 0.2 (0.0-0.5) mg/dL AST 16 (5-34) Units/L ALT 13 (0-55) Units/L Alkaline Phosphatase 139 H (38-126) Units/L Albumin 2.7 L (3.5-5.0) g/dL - ABG Interpretation ABG results: PT/INR, D-dimer PT 13.8 Seconds (9.4-12.1) H 11/30/16 04:30 Consult Discharge Plan - Plan Referrals: Dyllan Richards MD [Primary Care Provider] - 12/08/16 9:45 am (Please follow up with ROSELINE William)
--- NOTE | 2016-11-30 14:17 | IR Procedure Note ---
Date of procedure: 11/30/16 Consent Obtained: Verbal consent Timeout: Correct patient and procedure verified, Correct site verified, Time out performed, Skin prep completed Local anesthetic: Lidocaine 1% Indications: Nephrotic syndrome Procedure Performed: CT renal biopsy Site/Technique: Left kidney, 3 cores with 18g taken Results/Findings: No sig perinephric hematoma after Estimated blood loss (cc): 1 Complications: None; Tolerated procedure well Post Procedure Treatment Plan: Monitoring in pts room
[2016-11-30 16:31] LABS: ABG Base Excess -0.8 mEq/L (-2.0 to 3.0); ABG HCO3 24.3 mEQ/L (21-27); ABG Oxygen Saturation 95 % (95-98); ABG PCO2 41 mmHg (35-45); ABG PH 7.38 pH Units (7.32-7.45); ABG PO2 77 mmHg (85-104); ABG TCO2 25.6 mEq/L (20-26); Blood Gas FiO2 44 %
--- NOTE | 2016-11-30 17:23 | Nephrology Progress Note ---
Date of Encounter: 11/30/16 Time of Encounter: 17:21 - Assessment and Plan (1) Nephrotic syndrome Current Visit: Yes Status: Acute Patient's edema is secondary to nephrotic syndrome. His echocardiogram reveals normal EF and minimal diastolic dysfunction. He does not have cirrhosis. Will work-up with a biopsy of his kidney. Will restart diuretic today and monitor renal function. Serology for other causes of nephrotic syndrome is pending. Renal biopsy ordered. (2) Acute renal failure superimposed on stage 3 chronic kidney disease Current Visit: Yes Status: Acute CRISTIAN on CKD of unclear etiology, but suspect at least part may be secondary from hemodynamic changes from attempting to diurese the patient. With the increase to nephrotic range proteinuria there could also be an intrinsic process going on as well. Ordered a renal biopsy. Spoke with patient who is in agreement. Renal dose medications. Avoid nephrotoxins. (3) Vitamin D deficiency Current Visit: Yes Status: Acute Low. Replacement ordered. (4) Hyperparathyroidism Current Visit: Yes Status: Acute Control phosphorus and ensure vitamin d stores are replete. Follow. (5) Morbid obesity Current Visit: Yes Status: Acute Outpatient management. Qualifiers: Qualified Code(s): E66.01 - Morbid (severe) obesity due to excess calories (6) Type 2 diabetes mellitus Current Visit: Yes Status: Acute Per primary team. Qualifiers: Diabetes mellitus complication status: with kidney complications Diabetes mellitus complication detail: with chronic kidney disease Diabetes mellitus predatory animal exterminator insulin use: with predatory animal exterminator use Chronic kidney disease stage: stage 3 (moderate) Qualified Code(s): E11.22 - Type 2 diabetes mellitus with diabetic chronic kidney disease; N18.3 - Chronic kidney disease, stage 3 ( moderate); Z79.4 - intermediate project manager (current) use of insulin (7) Anemia Current Visit: Yes Status: Chronic iron and folate deficiency. Replacement for both ordered. For iron deficiency patient does not recall a colonoscopy. Will check stool for occult blood. Primary team to determine if patient warrants endoscopy inpatient vs outpatient. Qualifiers: Anemia type: unspecified type Qualified Code(s): D64.9 - Anemia, unspecified (8) Irritable bowel Current Visit: Yes Status: Acute Possible IBS based on fluctuation between constipation and diarrhea. Added fiber therapy. Defer further management to primary team. Qualifiers: Qualified Code(s): K58.9 - Irritable bowel syndrome without diarrhea Subjective Principal diagnosis: CRISTIAN/CKD Interval history: Patient seen. He has no new complaint. He feels tired, but states this has been present for a while. He denies blood in his stool or melena, but complains of intermittent constipation and diarrhea. His review of systems otherwise is stable. Objective - Vital Signs Vital signs: Vital Signs Temp Pulse Resp BP Pulse Ox 11/30/16 16:29 98.6 F 63 16 131/75 96 11/30/16 14:12 68 12 149/71 95 11/30/16 14:07 69 12 146/75 95 11/30/16 13:59 70 12 134/79 96 11/30/16 11:00 98.4 F 89 24 116/78 93 11/30/16 07:21 98.7 F 64 18 168/75 95 11/30/16 06:02 97.8 F 11/30/16 02:22 97.8 F 53 16 130/78 93 11/29/16 21:00 97.8 F 68 20 155/70 93 11/29/16 17:48 97.6 F 71 18 170/83 94 Intake and Output 11/30/16 11/30/16 11/30/16 07:59 15:59 23:59 Intake Total 110 / 110 Balance 110 / 110 Intake: IV Fluids 110 / 110 Venofer 200 MG In 0.9 % 110 / 110 Sodium Chloride 100 ML @ 200 mls/hr IVPB DAILY [facility] Rx#:[id number] Other: Meal NPO BREAKFAST Weight 139.888 kg Blood Glucose* 109 120 110 Patient Weight 11/30/16 23:59 Weight 139.888 kg - General Appearance General appearance: Present: well-developed, well-nourished, obese EENT: Present: ATNC Neck: Present: supple Additional Comments: respirations are unlabored. Cardiology: Present: regular rate, regular rhythm Gastrointestinal: Present: no tenderness Integumentary: Present: warm and dry Neurologic: Present: alert and oriented x3 Musculoskeletal: Present: no cyanosis Psychiatric: Present: mood/affect appropriate - Lab 11/30/16 04:30 11/30/16 04:30 Most recent lab results ABG pH 7.38 pH Units (7.32-7.45) 11/30/16 16:21 ABG pCO2 41 mmHg (35-45) 11/30/16 16:21 ABG pO2 77 mmHg (85-104) L 11/30/16 16:21 ABG HCO3 24.3 mEQ/L (21-27) 11/30/16 16:21 ABG O2 Saturation 95 % (95-98) 11/30/16 16:21 Calcium 8.4 mg/dL (8.6-10.8) L 11/30/16 04:30 Phosphorus 5.7 mg/dL (2.3-4.7) H 11/29/16 05:24 Magnesium 1.6 mg/dL (1.6-2.6) 11/27/16 04:03 Urine Creatinine 134 mg/dL 11/29/16 16:45 Urine Sodium 83.0 mEq/L 11/28/16 03:10 Urine Total Protein 839 mg/dL (1-14) H 11/28/16 15:00 Consult Discharge Plan - Plan Referrals: Dyllan Richards MD [Primary Care Provider] - 12/08/16 9:45 am (Please follow up with ROSELINE William)
[2016-11-30] MEDS: Insulin DETEMIR 100 UNIT/ML X5UNITS SQ SCH (20:43)
[2016-12-01 02:12] LABS: Basophils # 0.1 K/mcL (0.0-0.2); Basophils % 0.8 %; Eosinophils # 0.1 K/mcL (0.0-0.6); Eosinophils % 1.5 %; Hematocrit 30.7 % (37.5-50.1); Hemoglobin 9.4 g/dL (12.9-16.9); Immature Granulocytes % 0.2 % (0-4); Lymphocytes # 0.5 K/mcL (0.6-4.6); Lymphocytes % 5.2 %; Mean Corpuscular HGB Conc 30.6 g/dL (31.6-35.5); Mean Corpuscular Hemoglobin 26.3 pg (28.0-33.3); Mean Corpuscular Volume 85.8 fL (83.0-100.0); Mean Platelet Volume 11.1 fL (9.4-12.4); Monocytes # 0.6 K/mcL (0.0-1.3); Monocytes % 6.2 %; Neutrophils # 7.7 K/mcL (1.6-8.9); Platelet Count 194 K/mcL (140-400); Red Blood Count 3.58 M/mcL (4.19-5.50); Red Cell Distribution Width 14.2 % (11.5-14.5); Segmented Neutrophils % 86.1 %
[2016-12-01 02:36] LABS: Calcium 8.3 mg/dL (8.6-10.8)
[2016-12-01 02:37] LABS: Albumin 2.6 g/dL (3.5-5.0); Albumin/Globulin Ratio 0.6 (1.1-2.2); Bilirubin,Direct 0.3 mg/dL (0.0-0.5); Bilirubin,Indirect 0.4 mg/dL (0.0-1.2); Bilirubin,Total 0.7 mg/dL (0.2-1.2); Globulin 4.4 g/dL (2.4-3.5)
[2016-12-01] MEDS: *HR* Heparin 5,000 UNIT/ML VIAL SQ SCH ×3 (05:35→21:46)
--- NOTE | 2016-12-01 08:14 | Nephrology Progress Note ---
Date of Encounter: 12/01/16 Time of Encounter: 08:14 - Assessment and Plan (1) Nephrotic syndrome Current Visit: Yes Status: Acute Patient with previous history of proteinuria likely secondary to longstanding uncontrolled diabetes was determined to have a Protein/Cr ratio of 6.99 on this admission and significant 3+ pitting lower extremity edema. Echo returned normal EF and mild concentric LVH. Renal biopsy completed yesterday per IR, left. 300mL urine output/24hours. BUN 70, Cr 3.02, GFR 22 Increase to 80mg lasix Once. monitor kidney function. Continue monitoring labs and strict I&O UA ordered Avoid nephrotoxic agents, continue with renal protective strategy. No urgent hemodialysis at this time. Serologies for nephrotic syndrome and CRISTIAN workup pending. (2) Acute renal failure superimposed on stage 3 chronic kidney disease Current Visit: Yes Status: Acute CRISTIAN on CKD stage 3 May be related to attempts to diurese patient. Suspect an intrinsic process with Urine sodium high vs atn. Patients Cr appears stable at just below 3.0. BUN 70, Cr 3.02, GFR 22 Continue with renal protective strategy, avoid nephrotoxic agents. No need for urgent dialysis. (3) Vitamin D deficiency Current Visit: Yes Status: Acute Vitamin D 9L. Replete and follow as needed. (4) Hyperparathyroidism Current Visit: Yes Status: Acute Phosphorus 5.9, elevated from 5.7 two days ago. Vitamin D 9L Continue with Phos-Lo Vitamin D ordered. Continue to monitor levels and replete vit D as needed. (5) Morbid obesity with BMI of 45.0-49.9, adult Current Visit: Yes Status: Chronic Counseled patient on importance of diet, exercise, and weight loss on director long term care health management. (6) Type 2 diabetes mellitus Current Visit: Yes Status: Acute Known history of type II diabetes with history of proteinuria prior to this admission. Continue to monitor. Continue per Hospitalist plan. Qualifiers: Diabetes mellitus complication status: with kidney complications Diabetes mellitus complication detail: with chronic kidney disease Diabetes mellitus [facility] insulin use: with director long term care use Chronic kidney disease stage: stage 3 (moderate) Qualified Code(s): E11.22 - Type 2 diabetes mellitus with diabetic chronic kidney disease; N18.3 - Chronic kidney disease, stage 3 ( moderate); Z79.4 - director long term care (current) use of insulin (7) Anemia Current Visit: Yes Status: Chronic Iron deficiency anemia and anemia of chronic disease. Hb 9.4 this morning. Iron 30L, Iron saturation 11% L, Ferritin 0.4. Folate 5.5L Vit B12 >2000 after one dose B12 IM given yesterday. Replete and continue to monitor. Recommend workup for iron deficiency including possible occult blood stool and colonoscopy. Qualifiers: Anemia type: unspecified type Qualified Code(s): D64.9 - Anemia, unspecified (8) Hyperuricemia Current Visit: Yes Status: Acute Uric acid level 10.6H. Continue to monitor. No treatment at this time in absence of symptoms and CRISTIAN. Recommend lifestyle modifications. Subjective Principal diagnosis: CRISTIAN/CKD Interval history: Patient reports doing well overnight, slept in chair without difficulties. Reports continued swelling of his leg bilaterally, continues to be unimproved from yesterday. Patient reports urinating very little overnight despite being given lasix and urine mildly darker today from yesterday. Note I&O about 300mL urine/24 hours. Patient denies shortness of breath when sitting up, fevers, chills, sweats, changes in vision or hearing, chest pain, abdominal pain, changes in bowels, dysuria, gross hematuria, weakness, or loss of sensation. Objective - Vital Signs Vital signs: Vital Signs Temp Pulse Resp BP Pulse Ox 12/01/16 05:16 99.6 F 74 18 139/61 92 12/01/16 00:41 98.5 F 64 18 122/45 94 11/30/16 19:33 98.3 F 65 18 137/66 94 11/30/16 16:29 98.6 F 63 16 131/75 96 11/30/16 14:12 68 12 149/71 95 11/30/16 14:07 69 12 146/75 95 11/30/16 13:59 70 12 134/79 96 11/30/16 11:00 98.4 F 89 24 116/78 93 Intake and Output 11/30/16 12/01/16 12/01/16 23:59 07:59 15:59 Intake Total 100 / 100 0 / 0 Output Total 300 / 300 Balance 100 / 100 -300 / -300 Intake: Oral 100 / 100 0 / 0 Output: Urine 300 / 300 Other: Meal NPO Dinner Weight 140.8 kg Blood Glucose* 151 Patient Weight 12/01/16 23:59 Weight 140.8 kg - General Appearance General appearance: Present: well-developed, well-nourished, appears started age , obese EENT: Present: PERRL, mucous membranes moist, hearing intact Neck: Present: no JVD, no carotid bruit, supple Respiratory: Present: clear Cardiology: Present: no murmurs, regular rate, regular rhythm, normal S1, normal S2 Gastrointestinal: Present: normoactive bowel sounds, no tenderness, no guarding Integumentary: Present: no rash, warm and dry, hyperpigmentation (lower extremities) Additional Comments: Left renal biopsy site clean dry intact, no drainage or bleeding, no erythema or tenderness Neurologic: Present: no focal deficit, no asterixis, alert and oriented x3, strength 5/5, CN 3-12 intact Musculoskeletal: Present: no erythema, no cyanosis Additional Comments: 3+ pitting edema bilateral lower extremities Psychiatric: Present: mood/affect appropriate, cooperative - Lab 12/01/16 01:30 12/01/16 01:30 Most recent lab results ABG pH 7.38 pH Units (7.32-7.45) 11/30/16 16:21 ABG pCO2 41 mmHg (35-45) 11/30/16 16:21 ABG pO2 77 mmHg (85-104) L 11/30/16 16:21 ABG HCO3 24.3 mEQ/L (21-27) 11/30/16 16:21 ABG O2 Saturation 95 % (95-98) 11/30/16 16:21 Calcium 8.3 mg/dL (8.6-10.8) L 12/01/16 01:30 Phosphorus 5.9 mg/dL (2.3-4.7) H 12/01/16 01:30 Magnesium 1.6 mg/dL (1.6-2.6) 11/27/16 04:03 Urine Creatinine 134 mg/dL 11/29/16 16:45 Urine Sodium 83.0 mEq/L 11/28/16 03:10 Urine Total Protein 839 mg/dL (1-14) H 11/28/16 15:00 Consult Discharge Plan - Plan Referrals: Dyllan Richards MD [Primary Care Provider] - 12/08/16 9:45 am (Please follow up with ROSELINE William)
[2016-12-01] MEDS: Insulin LISPRO 300 UNITS/3 ML VIAL SQ SCH ×4 (08:46→21:47)
[2016-12-01] MEDS: Furosemide 40 MG/4 ML VIAL IVP SCH ×2 (08:57→17:14)
[2016-12-01] MEDS: hydrALAZINE 25 MG TABLET PO SCH ×2 (08:57→21:46)
[2016-12-01] MEDS: Cholecalciferol (D-3) 1,000 UNIT TABLET PO SCH (08:57)
[2016-12-01] MEDS: Calcium Acetate 667 MG CAPSULE PO SCH ×3 (08:57→17:14)
[2016-12-01] MEDS: Folic Acid 1 MG TABLET PO SCH (08:58)
[2016-12-01] MEDS: Iron Sucrose Complex 200 MG in 0.9 % Sodium Chloride 100 ML IVPB SCH (08:58)
[2016-12-01] MEDS: Psyllium 1 PACKET POWD.PACK PO SCH ×3 (09:00→21:47)
[2016-12-01 09:01] LABS: Total Volume 24 Hour,Urine 1.4 Liters (0.80-1.80)
--- NOTE | 2016-12-01 09:16 | Internal Med Progress Note ---
Date of Encounter: 12/01/16 Time of Encounter: 09:12 - Assessment and plan (1) Acute renal failure superimposed on stage 3 chronic kidney disease Current Visit: Yes Status: Acute Assessment and plan: Worsening renal function in the setting of significant proteinuria S/P Renal biopsy done by Interventional radiology On 11/30/16, awaiting report restarted on aggressive diuretic support yesterday, given worsening renal function and minimal urine output, will decrease Lasix to 40mg IV BID Nephrology consultation appreciated will continue to monitor I/Os (2) Hyperkalemia Current Visit: Yes Status: Acute Assessment and plan: Likely secondary to diuretic therapy will give one dose of Kayxelate closely monitor (3) Acute on chronic diastolic (congestive) heart failure Current Visit: Yes Status: Acute Assessment and plan: Preserved ejection fraction heart failure, monitor input output. Still overloaded, poor adherence to diet and fluid restriction, risk of readmissions. Continue monitoring. Monitor electrolytes and renal function tests. Insulin therapy. Monitor fingerstick. Acute kidney injury, no evidence of obstruction in renal sonogram. (4) DVT prophylaxis Current Visit: No Status: Acute Assessment and plan: Heparin SQ (5) Type 2 diabetes mellitus Current Visit: Yes Status: Acute Assessment and plan: BG within acceptable range continue SS insulin monitor FS and BG ADA diet Qualifiers: Diabetes mellitus complication status: with kidney complications Diabetes mellitus complication detail: with chronic kidney disease Diabetes mellitus intermediate school teacher insulin use: with custodial use Chronic kidney disease stage: stage 3 (moderate) Qualified Code(s): E11.22 - Type 2 diabetes mellitus with diabetic chronic kidney disease; N18.3 - Chronic kidney disease, stage 3 ( moderate); Z79.4 - [facility] (current) use of insulin (6) Morbid obesity with BMI of 45.0-49.9, adult Current Visit: Yes Status: Chronic - Subjective Interval history: Pt seen and examined at bedside. Resting in chair and reports of feeling better compared to the previous day. States he has minimal urine output despite being started on diuretic therapy. No overnight issues reported. - Constitutional Vitals: Temp Pulse Resp BP Pulse Ox 99.2 F 73 20 155/73 92 12/01/16 08:52 12/01/16 08:52 12/01/16 08:52 12/01/16 08:52 12/01/16 08:52 General appearance: Present: A&O X 3, morbidly obese, pleasant, no acute distress, answers questions appropriately - Head Head exam: Present: atraumatic, normocephalic - Eye Eye exam: Present: normal appearance, conjuntiva pink, sclera anicteric - Respiratory Respiratory exam: Present: CTAB. Absent: accessory muscle use, rales, rhonchi, wheezes - Cardiovascular Cardiovascular exam: Present: RRR, +S1, +S2. Absent: diastolic murmur, gallop, rubs, systolic murmur - GI/Abdominal GI/Abdominal exam: Present: normal bowel sounds, soft, no peritoneal signs. Absent: distended, tenderness - Extremities Exam Extremities exam: Present: warm, radial pulses palpable and symetrical. Absent : calf tenderness (Bilateral LE edema) - Neurological Exam Neurological exam: Present: alert, oriented X3 - Psychiatric Psychiatric exam: Present: normal affect, normal mood Internal Medicine: Result - Labs CBC & Chem 7: 12/01/16 01:30 12/01/16 01:30 Labs: Short CBC 12/01/16 Range/Units 01:30 WBC 8.9 (4.3-11.1) K/mcL Hgb 9.4 L (12.9-16.9) g/dL Hct 30.7 L (37.5-50.1) % Plt Count 194 (140-400) K/mcL Neutrophils # 7.7 (1.6-8.9) K/mcL BMP 12/01/16 01:30 Sodium 140 Potassium 5.0 H Chloride 108 Carbon Dioxide 22 BUN 70 H Creatinine 3.02 H Glucose 146 H Calcium 8.3 L Cardiac Enzymes 11/30/16 11/30/16 12/01/16 Range/Units 11:56 17:54 01:30 Troponin I 0.02 0.02 0.02 (0-0.03) ng/mL Liver Function 12/01/16 Range/Units 01:30 Total Bilirubin 0.7 (0.2-1.2) mg/dL Direct Bilirubin 0.3 (0.0-0.5) mg/dL AST 29 (5-34) Units/L ALT 20 (0-55) Units/L Alkaline Phosphatase 171 H (38-126) Units/L Albumin 2.6 L (3.5-5.0) g/dL - ABG Interpretation ABG results: ABG ABG pH 7.38 pH Units (7.32-7.45) 11/30/16 16:21 ABG pCO2 41 mmHg (35-45) 11/30/16 16:21 ABG pO2 77 mmHg (85-104) L 11/30/16 16:21 ABG O2 Saturation 95 % (95-98) 11/30/16 16:21 PT/INR, D-dimer PT 13.8 Seconds (9.4-12.1) H 11/30/16 04:30 - Impressions Impressions Renal Biopsy CT 11/30/16 00:00 IMPRESSION: Successful CT guided core biopsy of the left kidney. D/ / Qasim Ray MD / Qasim Ray MD Interpreting Provider: Qasim Ray MD Chest X-Ray 11/30/16 15:05 IMPRESSION: Persistent findings of congestive heart failure with slightly increasing small bilateral pleural effusions. D/ / Zaida Lai MD / Zaida Lai MD Interpreting Provider: Zaida Lai MD Consult Discharge Plan - Plan Referrals: Dyllan Richards MD [Primary Care Provider] - 12/08/16 9:45 am (Please follow up with ROSELINE William)
[2016-12-01 10:18] LABS: Creatinine 24 Hour,Urine 1.97 g/day (0.71-1.65)
[2016-12-01 10:52] LABS: Complement Component 3 149 mg/dL (88-201); Complement Component 4 31 mg/dL (10-40)
[2016-12-01 11:10] LABS: Protein/Creatinine Ratio,Urine 5.98 mg/mg (0-0.20)
[2016-12-01 14:43] LABS: Bilirubin,Urine Negative (Negative); Blood,Urine Negative (Negative); Color,Urine Yellow (Yellow); Glucose,Urine (UA) 100 mg/dL (Normal); Ketones,Urine Negative (Negative); Leukocyte Esterase,Urine Negative (Negative); Nitrite,Urine Negative (Negative); Protein,Urine >=300 mg/dL (Neg-Trace); Specific Gravity,Urine 1.017 (1.010-1.025); Urobilinogen,Urine Normal (Normal)
[2016-12-01 14:46] LABS: Bacteria,Urine None Seen per hpf (None-Few); Hyaline Casts,Urine None Seen per lpf (None-Few); Squamous Epithelial Cell,Urine Moderate per lpf (None-Few); WBC,Urine 0-3 per hpf (0-3)
[2016-12-01 14:50] LABS: Clarity,Urine Slightly Hazy (Clear)
[2016-12-01 15:46] LABS: Transitional Epi Cells,Urine Few per hpf (None-Few); Yeast,Urine Few per hpf (None Seen)
--- NOTE | 2016-12-01 17:19 | Electrocardiograph Report ---
[place] [id number] Test Date: 2016-11-30 Pat Name: Román Robles Department: 112 Room: 2A16 Gender: M Cork Grinder: : 1960 Requested By: Cammy Durán Order Number: [id number] Reading MD: Carol Chowdhury Measurements Intervals [place] Rate: 88 P: -84 VA: 118 QRS: -47 QRSD: 142 T: 51 QT: 377 QTc: 423 Interpretive Statements UNCLEAR UNDERLYING RHYTHM DUE TO ARTIFACT LEFTWARD AXIS DEVIATION RIGHT BUNDLE BRANCH BLOCK Electronically Signed On 12-01-2016 17:18:10 EDT by Carol Chowdhury
[2016-12-01] MEDS ORDERED: Saline Nasal Spray 44 ML BOTTLE NS PRN (18:55)
[2016-12-01] MEDS: Insulin DETEMIR 100 UNIT/ML X5UNITS SQ SCH (21:47)
[2016-12-02 05:27] LABS: Basophils # 0.1 K/mcL (0.0-0.2); Basophils % 1.4 %; Eosinophils # 0.2 K/mcL (0.0-0.6); Hematocrit 29.6 % (37.5-50.1); Hemoglobin 8.8 g/dL (12.9-16.9); Immature Granulocytes % 0.5 % (0-4); Lymphocytes # 0.8 K/mcL (0.6-4.6); Mean Corpuscular HGB Conc 29.7 g/dL (31.6-35.5); Mean Corpuscular Volume 87.3 fL (83.0-100.0); Mean Platelet Volume 11.2 fL (9.4-12.4); Monocytes # 0.8 K/mcL (0.0-1.3); Monocytes % 13.4 %; Neutrophils # 3.9 K/mcL (1.6-8.9); Platelet Count 190 K/mcL (140-400); Red Blood Count 3.39 M/mcL (4.19-5.50); Red Cell Distribution Width 14.4 % (11.5-14.5); Segmented Neutrophils % 67.7 %
[2016-12-02 05:34] LABS: Calcium 8.4 mg/dL (8.6-10.8); Magnesium 1.7 mg/dL (1.6-2.6); Potassium 4.5 mEq/L (3.5-4.5)
[2016-12-02] MEDS: *HR* Heparin 5,000 UNIT/ML VIAL SQ SCH ×3 (05:42→21:19)
[2016-12-02 07:05] LABS: Myeloperoxidase Ab 2 AU/mL (0-19); Serine Protease-3 Antibody 4 AU/mL (0-19)
[2016-12-02 07:06] LABS: ANA IgG by ELISA NONE DETECTED (None Detected)
[2016-12-02 08:21] LABS: Urine Collection Duration RANDOM hr; Urine Collection Volume RANDOM mL
[2016-12-02] MEDS: Furosemide 40 MG/4 ML VIAL IVP SCH ×2 (08:53→18:00)
[2016-12-02] MEDS: Cholecalciferol (D-3) 1,000 UNIT TABLET PO SCH (08:53)
[2016-12-02] MEDS: Folic Acid 1 MG TABLET PO SCH (08:53)
[2016-12-02] MEDS: hydrALAZINE 25 MG TABLET PO SCH ×2 (08:53→21:15)
[2016-12-02] MEDS: Calcium Acetate 667 MG CAPSULE PO SCH ×3 (08:54→19:05)
[2016-12-02] MEDS: Insulin LISPRO 300 UNITS/3 ML VIAL SQ SCH ×4 (08:54→21:19)
[2016-12-02] MEDS: Psyllium 1 PACKET POWD.PACK PO SCH ×3 (08:55→21:19)
--- NOTE | 2016-12-02 08:57 | Nephrology Progress Note ---
Date of Encounter: 12/02/16 Time of Encounter: 08:57 - Assessment and Plan (1) Nephrotic syndrome Current Visit: Yes Status: Acute Patient with previous history of proteinuria likely secondary to longstanding uncontrolled diabetes was determined to have a Protein/Cr ratio of 6.99 on this admission and significant 3+ pitting lower extremity edema. Echo returned normal EF and mild concentric LVH. Renal biopsy sent, pending results. 1525mL urine output/24hrs Urine 24hr Cr = 1.97, Total protein 24hr= 34238, Protein/Cr ratio 5.98 FIDELIA negative, MPO wnl, Complement C3/C4 wnl. Improvement in b/l lower extremity edema overnight after albumin challenge. BUN 71, Cr 2.68, GFR 22 Continue with lasix 40mg bid and albumin, monitor kidney function. Continue monitoring labs and strict I&O Avoid nephrotoxic agents, continue with renal protective strategy. No urgent hemodialysis at this time. (2) Acute renal failure superimposed on stage 3 chronic kidney disease Current Visit: Yes Status: Acute CRISTIAN on CKD stage 3 May be related to attempts to diurese patient. Suspect an intrinsic process with Urine sodium high vs atn. BUN 71, Cr 2.68, GFR 25, improved from yesterday. Continue with renal protective strategy, avoid nephrotoxic agents. No need for urgent dialysis. (3) Vitamin D deficiency Current Visit: Yes Status: Acute Vitamin D 9L. Replete and follow as needed. (4) Hyperparathyroidism Current Visit: Yes Status: Acute Phosphorus 5.6, decreased from 5.9 yesterday. Vitamin D 9L Continue with Phos-Lo Vitamin D ordered. Continue to monitor levels and replete vit D as needed. (5) Morbid obesity with BMI of 45.0-49.9, adult Current Visit: Yes Status: Chronic Counseled patient on importance of diet, exercise, and weight loss on senior living health management. (6) Type 2 diabetes mellitus Current Visit: Yes Status: Acute Known history of type II diabetes with history of proteinuria prior to this admission. Continue to monitor. Continue per Hospitalist plan. Qualifiers: Diabetes mellitus complication status: with kidney complications Diabetes mellitus complication detail: with chronic kidney disease Diabetes mellitus senior living insulin use: with termite control representative use Chronic kidney disease stage: stage 3 (moderate) Qualified Code(s): E11.22 - Type 2 diabetes mellitus with diabetic chronic kidney disease; N18.3 - Chronic kidney disease, stage 3 ( moderate); Z79.4 - termite control representative (current) use of insulin (7) Anemia Current Visit: Yes Status: Chronic Iron deficiency anemia and anemia of chronic disease. Hb 8.8 this morning, slightly decreased from 9.4 yesterday. Iron 30L, Iron saturation 11% L, Ferritin 0.4. Folate 5.5L Vit B12 >2000 after one dose B12 IM given yesterday. Stool occult blood negative. Continue to monitor. Continue per plan of Hospitalist. Qualifiers: Anemia type: unspecified type Qualified Code(s): D64.9 - Anemia, unspecified (8) Hyperuricemia Current Visit: Yes Status: Acute Uric acid level 10.6H. Continue to monitor. No treatment at this time in absence of symptoms and CRISTIAN. Recommend lifestyle modifications. Subjective Principal diagnosis: CRISTIAN/CKD Interval history: Patient reports doing well overnight, slept in chair without difficulties. Reports continued swelling of his leg bilaterally, but improved this morning after albumin challenge yesterday. Patient urinated about 1525mL urine/24hours and is now at a -385 fluid balance according to our I&Os. Patient denies shortness of breath when sitting up, fevers, chills, sweats, changes in vision or hearing, nausea, vomiting, chest pain, abdominal pain, changes in bowels, dysuria, hematuria, weakness, or loss of sensation. Objective - Vital Signs Vital signs: Vital Signs Temp Pulse Resp BP Pulse Ox 12/02/16 06:46 98.2 F 60 18 134/77 94 12/02/16 04:13 98.0 F 64 18 106/51 92 12/02/16 00:20 97.6 F 62 22 100/41 12/01/16 19:08 98.2 F 72 18 170/86 92 12/01/16 15:49 98.6 F 67 16 147/75 94 12/01/16 12:17 97.7 F 69 20 156/83 93 Intake and Output 12/01/16 12/02/16 12/02/16 23:59 07:59 15:59 Intake Total 840 / 840 Output Total 325 / 325 Balance 840 / 840 -325 / -325 Intake: Oral 840 / 840 Output: Urine 325 / 325 Other: Meal Dinner Percent of Meal Consumed 100% Weight 140.523 kg Blood Glucose* 111 118 Patient Weight 12/02/16 23:59 Weight 140.523 kg - General Appearance General appearance: Present: well-developed, well-nourished, appears started age , obese EENT: Present: PERRL, mucous membranes moist Neck: Present: no JVD, no carotid bruit, supple Respiratory: Present: clear Cardiology: Present: no murmurs, regular rate, regular rhythm, normal S1, normal S2 Additional Comments: 2+ pitting edema bilateral lower extremities, improved Gastrointestinal: Present: normoactive bowel sounds, no tenderness, no guarding Integumentary: Present: no rash, warm and dry, hyperpigmentation (bilateral lower ext) Neurologic: Present: no focal deficit, no asterixis, alert and oriented x3, strength 5/5, CN 3-12 intact Musculoskeletal: Present: no deformities, no erythema, no cyanosis, no clubbing Psychiatric: Present: mood/affect appropriate, cooperative - Lab 12/02/16 04:18 12/02/16 04:18 Most recent lab results ABG pH 7.38 pH Units (7.32-7.45) 11/30/16 16:21 ABG pCO2 41 mmHg (35-45) 11/30/16 16:21 ABG pO2 77 mmHg (85-104) L 11/30/16 16:21 ABG HCO3 24.3 mEQ/L (21-27) 11/30/16 16:21 ABG O2 Saturation 95 % (95-98) 11/30/16 16:21 Calcium 8.4 mg/dL (8.6-10.8) L 12/02/16 04:18 Phosphorus 5.6 mg/dL (2.3-4.7) H 12/02/16 04:18 Magnesium 1.7 mg/dL (1.6-2.6) 12/02/16 04:18 Urine Creatinine 141 mg/dL 11/30/16 14:00 Ur Total Protein 24 Hr 41213 mg/day (0-299) H 11/30/16 14:00 Urine Sodium 83.0 mEq/L 11/28/16 03:10 Urine Total Protein 843 mg/dL (1-14) H 11/30/16 14:00 Consult Discharge Plan - Plan Referrals: Dyllan Richards MD [Primary Care Provider] - 12/08/16 9:45 am (Please follow up with ROSELINE William)
[2016-12-02] MEDS: Iron Sucrose Complex 200 MG in 0.9 % Sodium Chloride 100 ML IVPB SCH (10:32)
--- NOTE | 2016-12-02 13:24 | Internal Med Progress Note ---
Date of Encounter: 12/02/16 Time of Encounter: 13:23 - Assessment and plan (1) Acute renal failure superimposed on stage 3 chronic kidney disease Current Visit: Yes Status: Acute Assessment and plan: Worsening renal function in the setting of significant proteinuria S/P Renal biopsy done by Interventional radiology On 11/30/16, awaiting report Pt responding well to Lasix and Albumin therapy, will continue Nephrology input appreciated will coninue to monitor I/Os closely monitor renal function (2) Hyperkalemia Current Visit: Yes Status: Resolved Assessment and plan: Resolved continue to monitor electrolytes and replace as needed (3) Acute on chronic diastolic (congestive) heart failure Current Visit: Yes Status: Acute Assessment and plan: Preserved ejection fraction heart failure, monitor input output. Continue monitoring. Monitor electrolytes and renal function tests. (4) DVT prophylaxis Current Visit: No Status: Acute Assessment and plan: Heparin SQ (5) Type 2 diabetes mellitus Current Visit: Yes Status: Acute Assessment and plan: BG within acceptable range continue SS insulin monitor FS and BG ADA diet Qualifiers: Diabetes mellitus complication status: with kidney complications Diabetes mellitus complication detail: with chronic kidney disease Diabetes mellitus terminal clerk insulin use: with terminal clerk use Chronic kidney disease stage: stage 3 (moderate) Qualified Code(s): E11.22 - Type 2 diabetes mellitus with diabetic chronic kidney disease; N18.3 - Chronic kidney disease, stage 3 ( moderate); Z79.4 - [facility] (current) use of insulin (6) Morbid obesity with BMI of 45.0-49.9, adult Current Visit: Yes Status: Chronic - Subjective Interval history: Pt seen and examined at bedside. Resting in chair and reports of feeling well. Noted to have increase in urine output yesterday after he was started on lasix and albumin challenge. Pt responding well to therapy with improvement in urine output and renal function. No discomfort reported at this time. Discharge pending renal biopsy report and clearance from nephrology. - Constitutional Vitals: Temp Pulse Resp BP Pulse Ox 98.8 F 64 18 143/77 90 12/02/16 11:17 12/02/16 11:17 12/02/16 11:17 12/02/16 11:17 12/02/16 11:17 General appearance: Present: A&O X 3, morbidly obese, pleasant, no acute distress, answers questions appropriately - Head Head exam: Present: atraumatic, normocephalic - Eye Eye exam: Present: normal appearance, conjuntiva pink, sclera anicteric - Respiratory Respiratory exam: Absent: respiratory distress, wheezes - Cardiovascular Cardiovascular exam: Present: RRR, +S1, +S2. Absent: diastolic murmur, gallop, rubs, systolic murmur - GI/Abdominal GI/Abdominal exam: Present: normal bowel sounds, soft, no peritoneal signs. Absent: distended, tenderness - Extremities Exam Extremities exam: Present: pedal edema, warm, radial pulses palpable and symetrical. Absent: calf tenderness - Neurological Exam Neurological exam: Present: altered, oriented X3 - Psychiatric Psychiatric exam: Present: normal affect, normal mood Internal Medicine: Result - Labs CBC & Chem 7: 12/02/16 04:18 12/02/16 04:18 Labs: Short CBC 12/02/16 Range/Units 04:18 WBC 5.7 (4.3-11.1) K/mcL Hgb 8.8 L (12.9-16.9) g/dL Hct 29.6 L (37.5-50.1) % Plt Count 190 (140-400) K/mcL Neutrophils # 3.9 (1.6-8.9) K/mcL BMP 12/02/16 04:18 Sodium 142 Potassium 4.5 Chloride 107 Carbon Dioxide 25 BUN 71 H Creatinine 2.68 H Glucose 119 H Calcium 8.4 L Urine 12/01/16 Range/Units 14:15 Urine Color Yellow (Yellow) Urine Clarity Slightly Hazy (Clear) Urine pH 5.0 (5.0-8.0) pH Units Ur Specific [place] 1.017 (1.010-1.025) Urine Protein >=300 H (Neg-Trace) mg/dL Urine Glucose (UA) 100 H (Normal) mg/dL - ABG Interpretation ABG results: ABG ABG pH 7.38 pH Units (7.32-7.45) 11/30/16 16:21 ABG pCO2 41 mmHg (35-45) 11/30/16 16:21 ABG pO2 77 mmHg (85-104) L 11/30/16 16:21 ABG O2 Saturation 95 % (95-98) 11/30/16 16:21 PT/INR, D-dimer PT 13.8 Seconds (9.4-12.1) H 11/30/16 04:30 Consult Discharge Plan - Plan Referrals: Dyllan Richards MD [Primary Care Provider] - 12/08/16 9:45 am (Please follow up with ROSELINE William)
[2016-12-02 13:43] LABS: Alpha 2 Globulin (PEP) 0.98 g/dL (0.48-1.05); Beta Globulin (PEP) 0.99 g/dL (0.48-1.10)
[2016-12-02 14:50] LABS: IFE Reflexed NOT DONE
[2016-12-02] MEDS: Insulin DETEMIR 100 UNIT/ML X5UNITS SQ SCH (21:16)
[2016-12-03 05:08] LABS: Basophils # 0.1 K/mcL (0.0-0.2); Basophils % 1.1 %; Eosinophils # 0.4 K/mcL (0.0-0.6); Eosinophils % 6.8 %; Hematocrit 28.9 % (37.5-50.1); Hemoglobin 8.9 g/dL (12.9-16.9); Immature Granulocytes % 0.5 % (0-4); Lymphocytes % 18.2 %; Mean Corpuscular HGB Conc 30.8 g/dL (31.6-35.5); Mean Corpuscular Hemoglobin 26.4 pg (28.0-33.3); Mean Corpuscular Volume 85.8 fL (83.0-100.0); Mean Platelet Volume 10.4 fL (9.4-12.4); Monocytes # 0.8 K/mcL (0.0-1.3); Monocytes % 14.1 %; Neutrophils # 3.3 K/mcL (1.6-8.9); Platelet Count 188 K/mcL (140-400); Red Blood Count 3.37 M/mcL (4.19-5.50); Red Cell Distribution Width 14.5 % (11.5-14.5); Segmented Neutrophils % 59.3 %
[2016-12-03 05:24] LABS: Calcium 8.2 mg/dL (8.6-10.8); Magnesium 1.6 mg/dL (1.6-2.6); Phosphorous 4.9 mg/dL (2.3-4.7); Potassium 3.7 mEq/L (3.5-4.5)
[2016-12-03] MEDS: *HR* Heparin 5,000 UNIT/ML VIAL SQ SCH ×2 (06:38→14:07)
[2016-12-03] MEDS: Psyllium 1 PACKET POWD.PACK PO SCH ×2 (08:09→14:02)
[2016-12-03] MEDS: Insulin LISPRO 300 UNITS/3 ML VIAL SQ SCH ×2 (08:19→12:07)
[2016-12-03] MEDS: Iron Sucrose Complex 200 MG in 0.9 % Sodium Chloride 100 ML IVPB SCH (08:20)
[2016-12-03] MEDS: Folic Acid 1 MG TABLET PO SCH (08:21)
[2016-12-03] MEDS: hydrALAZINE 25 MG TABLET PO SCH (08:22)
[2016-12-03] MEDS: Cholecalciferol (D-3) 1,000 UNIT TABLET PO SCH (08:22)
[2016-12-03] MEDS: Calcium Acetate 667 MG CAPSULE PO SCH ×2 (08:22→12:13)
[2016-12-03] MEDS: Furosemide 40 MG/4 ML VIAL IVP SCH (08:24)
--- NOTE | 2016-12-03 08:28 | Nephrology Progress Note ---
Date of Encounter: 12/03/16 Time of Encounter: 08:28 - Assessment and Plan (1) Nephrotic syndrome Current Visit: Yes Status: Acute Diabetic nephropathy Patient with previous history of proteinuria likely secondary to longstanding uncontrolled diabetes was determined to have a protein/cr ratio of 6.99 on this admission and significant 3+ pitting lower extremity edema. Echo returned normal EF ad mild concentric LVH. Urine 24 hr Cr = 1.97, Total protein 24 hr = 11839, Protein/Cr ratio 5.98 FIDELIA negative, MPO wnl, Complement C3/C4 wnl. Renal biopsy returned back findings consistent with diabetic nephropathy with 50 -60% sclerosis of glomeruli. Improvement in bilateral lower extremity edema since admission, continues to be about 2+ pitting edema. BUN 73, Cr 2.55, GFR 26. Improved. 2800 urine output/24 hours Protein restriction. Aggressive management of diabetes and hypertension. Continue with low dose losartan 12.5mg qd. Continue with lasix 40mg bid and albumin, monitor kidney function. Continue monitoring labs and strict I&O, 1.5L fluid restriction. Follow up with Dr. Coleman, Kidney specialist, in 3 weeks. BMP in 1 week. Have patient complete bp log prior to Nephro follow up appointment. Avoid nephrotoxic agents, continue with renal protective strategy. No urgent hemodialysis needed. Patient okay to discharge with followup and meds per plan as noted above. (2) Acute renal failure superimposed on stage 3 chronic kidney disease Current Visit: Yes Status: Acute CRISTIAN on CKD stage 3 BUN 73, Cr 2.55, GFR 26, improved from yesterday. Continue with renal protective strategy, avoid nephrotoxic agents. No need for urgent dialysis. (3) Vitamin D deficiency Current Visit: Yes Status: Acute Vitamin D 9L. Replete and follow as needed. (4) Hyperparathyroidism Current Visit: Yes Status: Acute Phosphorus 5.6 yesterday, improved from prior. Vitamin D 9L Continue with Phos-Lo Vitamin D ordered. Continue to monitor levels and replete vit D as needed. (5) Morbid obesity with BMI of 45.0-49.9, adult Current Visit: Yes Status: Chronic Counseled patient on importance of diet, exercise, and weight loss on half-way health management. (6) Type 2 diabetes mellitus Current Visit: Yes Status: Acute Known history of type II diabetes with history of proteinuria prior to this admission. Continue to monitor. Continue per Hospitalist plan. Qualifiers: Diabetes mellitus complication status: with kidney complications Diabetes mellitus complication detail: with chronic kidney disease Diabetes mellitus half-way insulin use: with termite technician use Chronic kidney disease stage: stage 3 (moderate) Qualified Code(s): E11.22 - Type 2 diabetes mellitus with diabetic chronic kidney disease; N18.3 - Chronic kidney disease, stage 3 ( moderate); Z79.4 - residential (current) use of insulin (7) Anemia Current Visit: Yes Status: Chronic Iron deficiency anemia and anemia of chronic disease. Hb 8.9 this morning. Iron 30L, Iron saturation 11% L, Ferritin 0.4. Folate 5.5L Vit B12 >2000 after one dose B12 IM given yesterday. Stool occult blood negative. Continue to monitor. Continue per plan of Hospitalist. Qualifiers: Anemia type: unspecified type Qualified Code(s): D64.9 - Anemia, unspecified (8) Hyperuricemia Current Visit: Yes Status: Acute Uric acid level 10.6H. Continue to monitor. No treatment at this time in absence of symptoms and CRISTIAN. Recommend lifestyle modifications. Subjective Principal diagnosis: CRISTIAN/CKD Interval history: Patient reports doing well overnight, slept in slightly elevated head of bed overnight without difficulties. Reports continue swelling of his legs bilaterally, about the same as yesterday. Patient urinated an estimated 2800/ 24hrs and now at a -1900 fluid balance upon review of I&O. Renal biopsy results returned changes consistent with diabetic nephropathy. Patient denies fevers, chills, sweats, changes in vision or hearing, nausea, vomiting, chest pain, shortness of breath, abdominal pain, changes in bowels, dysuria, hematuria , weakness, or loss of sensation. Objective - Vital Signs Vital signs: Vital Signs Temp Pulse Resp BP Pulse Ox 12/03/16 07:46 97.8 F 73 16 177/92 92 12/03/16 05:04 98.7 F 70 18 146/69 96 12/02/16 23:41 68 18 135/76 92 12/02/16 19:41 97.8 F 78 18 167/63 92 12/02/16 15:36 98.6 F 65 18 149/70 90 12/02/16 11:17 98.8 F 64 18 143/77 90 Intake and Output 12/02/16 12/03/16 12/03/16 23:59 07:59 15:59 Intake Total 600 / 600 Output Total 1000 / 1000 1000 / 1000 Balance -400 / -400 -1000 / -1000 Intake: Oral 600 / 600 Output: Urine 1000 / 1000 1000 / 1000 Other: Weight 141.793 kg Blood Glucose* 162 162 Patient Weight 12/03/16 23:59 Weight 141.793 kg - General Appearance General appearance: Present: well-developed, well-nourished, appears started age , obese EENT: Present: PERRL, mucous membranes moist Neck: Present: no JVD, no carotid bruit, supple Respiratory: Present: clear Cardiology: Present: no murmurs, regular rate, regular rhythm, normal S1, normal S2 Gastrointestinal: Present: normoactive bowel sounds, no tenderness, no guarding Integumentary: Present: no rash, warm and dry, hyperpigmentation (bilateral lower extremities) Neurologic: Present: no focal deficit, no asterixis, alert and oriented x3, strength 5/5, CN 3-12 intact Musculoskeletal: Present: no deformities, no erythema, no cyanosis, no clubbing Additional Comments: 2+ pitting edema bilateral lower extremities Psychiatric: Present: mood/affect appropriate, cooperative - Lab 12/03/16 04:52 12/03/16 04:52 Most recent lab results ABG pH 7.38 pH Units (7.32-7.45) 11/30/16 16:21 ABG pCO2 41 mmHg (35-45) 11/30/16 16:21 ABG pO2 77 mmHg (85-104) L 11/30/16 16:21 ABG HCO3 24.3 mEQ/L (21-27) 11/30/16 16:21 ABG O2 Saturation 95 % (95-98) 11/30/16 16:21 Calcium 8.2 mg/dL (8.6-10.8) L 12/03/16 04:52 Phosphorus 4.9 mg/dL (2.3-4.7) H 12/03/16 04:52 Magnesium 1.6 mg/dL (1.6-2.6) 12/03/16 04:52 Urine Creatinine 141 mg/dL 11/30/16 14:00 Ur Total Protein 24 Hr 69993 mg/day (0-299) H 11/30/16 14:00 Urine Sodium 83.0 mEq/L 11/28/16 03:10 Urine Total Protein 843 mg/dL (1-14) H 11/30/16 14:00 Consult Discharge Plan - Plan Referrals: Dyllan Richards MD [Primary Care Provider] - 12/08/16 9:45 am (Please follow up with ROSELINE William)
--- NOTE | 2016-12-03 10:36 | Discharge Summary ---
Date of Encounter: 12/03/16 Time of Encounter: 10:30 - Discharge Diagnosis (1) Acute renal failure superimposed on stage 3 chronic kidney disease Priority: Primary Status: Acute (2) Hyperkalemia Priority: Secondary Status: Resolved (3) Acute on chronic diastolic (congestive) heart failure Priority: Secondary Status: Acute (4) DVT prophylaxis Priority: Secondary Status: Acute (5) Type 2 diabetes mellitus Priority: Secondary Status: Chronic Qualifiers: Diabetes mellitus complication status: with kidney complications Diabetes mellitus complication detail: with chronic kidney disease Diabetes mellitus termination clerk insulin use: with fpc use Chronic kidney disease stage: stage 3 (moderate) Qualified Code(s): E11.22 - Type 2 diabetes mellitus with diabetic chronic kidney disease; N18.3 - Chronic kidney disease, stage 3 ( moderate); 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 (6) Morbid obesity with BMI of 45.0-49.9, adult Priority: Secondary Status: Chronic - Discharge Medications Prescriptions: Calcium Acetate [Phos-LO] 667 mg PO TIDWM #15 capsule Furosemide [Lasix] 40 mg PO BID #60 tab hydrALAZINE [HydrALAZINE] 50 mg PO Q12H #60 tablet Tamsulosin [Flomax] 0.4 mg PO DAILY #30 capsule Home Medications: Insulin NPH Hum/Reg Insulin Hm [Novolin 70-30 100 Unit/ml Vial] 20 unit SQ BID 11/25/16 [History] Metoprolol [Lopressor] 50 mg PO BID 11/25/16 [History] Potassium Chloride [Klor-Con 10] 10 meq PO BID 11/25/16 [History] metOLazone [Zaroxolyn] 2.5 mg PO Q48H 11/25/16 [History] Calcium Acetate [Phos-LO] 667 mg PO TIDWM #15 capsule 12/03/16 [Rx] Furosemide [Lasix] 40 mg PO BID #60 tab 12/03/16 [Rx] Tamsulosin [Flomax] 0.4 mg PO DAILY #30 capsule 12/03/16 [Rx] hydrALAZINE [HydrALAZINE] 50 mg PO Q12H #60 tablet 12/03/16 [Rx] Allergies/Adverse Reactions: Allergies clindamycin Allergy (Verified 11/25/16 17:50) Difficulty Breathing Procedures/tests Complete & Pending: Procedures Performed prior 72 hours Category Date Time Status ECG 12 lead ECG [ECG] Routine Y 11/30/16 11:25 Completed Date of admission: 11/26/16 03:24 Primary care physician: Dyllan Richards MD Consults: 11/28/16 07:42 Consult to Nephrology [CONS] Routine Consulting Provider: [facility]/NIECY/KIRILL/MARIA INES Reason for Consult: worsening renal funciton, underlying ckd and diastolic chf Call Completed: No 11/29/16 11:54 Consult to Interventional Radiology [CONS] Routine Consulting Provider: Radiology Interventional Cols Reason for Consult: Patient with CRISTIAN. He needs a renal biopsy with biopsy sample sent to [facility]. Call Completed: No 11/29/16 13:18 Consult to Occupational Therapy [CONS] Routine Comment: Evaluate, develop and implement POC Reason for Consult: Patient with significant swelling in his lower extremities. Evaluate for scrotal sling Discharging clinician: Cammy Durán Anticipated date of discharge: 12/03/16 - Patient Status Disposition: Home, Self-Care Condition: Good Functional capacity at discharge: independent ambulation Overall status at discharge: patient is back to baseline - Discharge Instructions Follow Up With: Dyllan Richards MD [Primary Care Provider] - 12/08/16 9:45 am (Please follow up with ROSELINE William) Forms: ED Satisfaction Letter Additional Instructions: Please follow up with your primary care physician within one week after your discharge from the hospital. Please follow up with your environmental services technician within one week after your discharge from the hospital. Your home blood pressure medications have been readjusted: Lisinopril/Hydrocholorothiazide has been discontinued Spironolactone has been discontinued Bumetanide has been discontinued Hydralazine 50mg PO BID has been added Lasix 40mg PO BID has been added Please closely monitor your blood pressure at home and inform your primary care physician about the above changes. Due to your elevated phosphorus levels, Phos-Lo has been added to your home meds. Please take this medications with meals as prescribed. Please get your blood work done prior to your appointment with your environmental services technician. Continue all your other home medications as prescribed by your primary care physician. - Diet and Activity Activity: resume usual activities as tolerated Diet: diabetic diet, low salt diet Hospital course: Mr. Robles is a 56 year old male with PMH of DM, CKD, CHF, GERD who was admittef for management of acute on chronic diastolic dysfunction. His hospital course was complicated by acute renal failure concerning for nephrotic syndrome. He was followed by nephrology and underwent renal biopsy. He respond appropriately to lasix and albumin therapy. Currently is hemodynamically stable with improvement in his renal function. He is saturating well on room air, reports of breathing comfortably and in no distress. He will be discharged to home with follow up with PCP and nephrology. Pt demonstrates understanding of his diagnosis and agrees with the discharge care and plan. - Time Spent with Patient Total time spent providing and/or coordinating discharge services: Greater than 30 minutes - Constitutional Vitals: Temp Pulse Resp BP Pulse Ox 97.8 F 73 16 177/92 92 12/03/16 07:46 12/03/16 07:46 12/03/16 07:46 12/03/16 07:46 12/03/16 07:46 General appearance: Present: A&O X 3, morbidly obese, pleasant, no acute distress, answers questions appropriately - Head Head exam: Present: atraumatic, normocephalic - Eye Eye exam: Present: normal appearance, conjuntiva pink, sclera anicteric - Respiratory Respiratory exam: Present: CTAB. Absent: accessory muscle use, rales, rhonchi, wheezes - Cardiovascular Cardiovascular exam: Present: RRR, +S1, +S2. Absent: diastolic murmur, gallop, rubs, systolic murmur - GI/Abdominal GI/Abdominal exam: Present: normal bowel sounds, soft, no peritoneal signs. Absent: distended, tenderness - Extremities Exam Extremities exam: Present: pedal edema, warm, radial pulses palpable and symetrical. Absent: calf tenderness - Neurological Exam Neurological exam: Present: alert, oriented X3 - Psychiatric Psychiatric exam: Present: normal affect, normal mood
[2016-12-03 15:16] VITALS: BP 151/80
== END 2016-12-03 16:29 | disposition home or self-care (01) | DRG 194 ==
LOC: 2ANU 17:25 → EMEROO 17:25 → 2ANU 21:51 → SUATTDRO 11-26 03:24
PROVIDERS: ADMIT Internal Medicine; ATTEND Internal Medicine